=== PATIENT | male | born 1935 | race Caucasian/White ===

== ENCOUNTER 2019-12-03 12:14 | Emergency (ER) | payer MEDICARE, OTHER, SELFPAY ==
--- NOTE | ~2019-12-03 | XR_ITS ---
EXAMINATION: XR shoulder RT min 2V INDICATION: Pain after fall, initial encounter TECHNIQUE: Two views of the right shoulder are submitted. COMPARISON: None FINDINGS: There is an acute, traumatic, closed, comminuted fracture of the proximal humeral shaft. Al ignment at the glenohumeral and acromioclavicular joints appears normal. No additional acute osseous findings are evident. Soft tissue swelling surrounds the fracture. IMPRESSION: Comminuted shaft fracture of the proximal humerus. Reviewed, dictated and finalized at location A.
[2019-12-03 12:14] VITALS: BP 110/65; PULSE 64; RESP 18; TEMP 36.4; O2SAT 98
[2019-12-03] MEDS: SODIUM CHLORIDE 0.9% IV 1,000 ML 999 ML IV CONT (12:40)
[2019-12-03] MEDS: ONDANSETRON INJ 4 MG/2 ML VIAL IV PUSH (12:40)
[2019-12-03] MEDS: MORPHINE SULFATE 4 MG/ML INJ IV PUSH (12:40)
--- NOTE | 2019-12-03 12:50 | ED.GENADULT ---
HPI - General Adult General Chief complaint: Extremity Injury, Upper <Ezequiel Kearney PA-C - Last Filed: 12/03/19 14:35> Stated complaint: fall <PATI Fraire Last Filed: 12/03/19 14:35> Time Seen by Provider: 12/03/19 12:19 <PATI Fraire Last Filed: 12/03/19 14:35> Source: patient and EMS <PATI Fraire Last Filed: 12/03/19 14:35> Mode of arrival: ambulatory <PATI Fraire Last Filed: 12/03/19 14:35> Limitations: no limitations <PATI Fraire Last Filed: 12/03/19 14:35> History of Present Illness HPI narrative: Patient is an 84-year-old male who presents per EMS status post ground-level fall while working outside injuring the right shoulder notes moderate aching pain worse with activity and movement patient denies other injuries or complaints specifically no head injury syncope loss of consciousness. <PATI Fraire Last Filed: 12/03/19 14:35> Related Data Home medications: Home Medications Medication Instructions Recorded Confirmed acetaminophen-caffeine [Excedrin 1 tablet PO Q6H PRN 06/13/19 Tension Headache] ascorbic acid (vitamin C) mg PO 06/13/19 aspirin,buffd-calcium carb-mag 325 mg PO DAILY 06/13/19 calcium carbonate-vitamin D3 1 tablet PO BID 06/13/19 chlorhexidine gluconate 06/13/19 diclofenac sodium PO 06/13/19 ferrous sulfate 06/13/19 fexofenadine-pseudoephedrine 1 tablet PO QAM 06/13/19 finasteride mg 06/13/19 glucosamine-chondroitin 2 tablet PO TID 06/13/19 mag dqusz-D0-fabcibri rt xt tablet PO 06/13/19 metoprolol tartrate 25 mg PO DAILY 06/13/19 ohzuyxgq-gjg-ZA-lycopen-lutein 1 tablet PO DAILY 06/13/19 [Centrum Silver] niacin 500 mg PO BID 06/13/19 nitroglycerin 0.4 mg PRN 06/13/19 pantoprazole 40 mg PO DAILY 06/13/19 ranitidine HCl 150 mg PO BID 06/13/19 simvastatin mg 06/13/19 tamsulosin mg PO 06/13/19 <Ezequiel Kearney PA-C - Last Filed: 12/03/19 14:35> Allergies/adverse reactions: Allergies Allergy/AdvReac Type Severity Reaction Status Date / Time Milk Containing Products AdvReac Nausea Unverified 06/13/19 09:32 <Ezequiel Kearney PA-C - Last Filed: 12/03/19 14:35> [facility] Past Medical History Medical History: Medical History (Updated 12/03/19 @ 13:31 by Suzanne Medrano MD) Anemia Arthritis Back pain BPH (benign prostatic hyperplasia) Coronary artery disease Fall Glaucoma HTN (hypertension) Hypercholesterolemia Kidney stones Lactose intolerance Myocardial infarction x2 1996, 2000 Pancreatitis Seasonal allergies <PATI Fraire Last Filed: 12/03/19 14:35> Surgical History Surgical History: Surgical History (Updated 06/13/19 @ 10:45 by CARLO Long) H/O inguinal hernia repair H/O Spinal surgery H/O umbilical hernia repair Hx of cardiac cath x 2 1996, 2000 stent placement Hx of cholecystectomy Hx of tonsillectomy <Ezequiel Kearney PA-C - Last Filed: 12/03/19 14:35> Family History Family History: Family History (Updated 06/13/19 @ 10:46 by CARLO Long) Grandparent Cerebrovascular accident Sibling Heart disease Sibling Cancer <PATI Fraire Last Filed: 12/03/19 14:35> Social History Social History: Social History (Updated 06/13/19 @ 10:47 by CARLO Long) Smoking status: Former smoker Alcohol intake: never Substance use: never Gender identity (if verbalized by the patient): Male <PATI Fraire Last Filed: 12/03/19 14:35> Course Course Emergency Course: Patient in the room aware of discussion with orthopedic surgery agreeing to follow in clinic as instructed <Ezequiel Kearney PA-C - Last Filed: 12/03/19 14:35> [employer]/PA Physician Supervision Attestation for Ezequiel Kearney [id number]. We discussed the case and reviewed the x-ray of the right shoulder fracture. Dr. Phillips our orthopedic surgeon collections attorney so
[2019-12-03] MEDS: ONDANSETRON INJ 4 MG/2 ML VIAL (13:57)
[2019-12-03 13:58] VITALS: BP 108/53; PULSE 72; RESP 18; O2SAT 99
[2019-12-03 15:14] VITALS: BP 102/76; PULSE 72; RESP 18
== END 2019-12-03 15:19 | disposition home or self-care (01) ==
PROVIDERS: Emergency Provider Emergency Medicine; PCP Family Medicine
DX: S42.351A Displaced comminuted fracture of shaft of humerus, right arm, initial encounter for closed fracture (principal); D64.9 Anemia, unspecified; M19.90 Unspecified osteoarthritis, unspecified site; N40.0 Benign prostatic hyperplasia without lower urinary tract symptoms; I25.10 Atherosclerotic heart disease of native coronary artery without angina pectoris; H40.9 Unspecified glaucoma; I10 Essential (primary) hypertension; E78.00 Pure hypercholesterolemia, unspecified; Z87.442 Personal history of urinary calculi; I25.2 Old myocardial infarction; Z95.5 Presence of coronary angioplasty implant and graft
CPT/HCPCS: 73030; 96361; 96374; 96375; 96376; 99284; J2270; J2405; J7030

== ENCOUNTER 2020-01-19 03:43 | Day surgery (SDC) | payer MEDICARE, OTHER, SELFPAY ==
[2020-01-19] VITALS (16 sets, daily range): BP systolic 101–150; BP diastolic 56–97; PULSE 60–97; RESP 12–18; TEMP 36.4–36.7; O2SAT 93–100
--- NOTE | ~2020-01-19 | XR_ITS ---
EXAMINATION: XR fluoroscopy no charge DATE: 01/19/2020 10:17 INDICATION: Right ureteral stone extraction TECHNIQUE: 2 fluoroscopic spot images of the pelvis were obtained during procedure performed by Dr. Darinel deal. Radiologist was not present for the imaging or procedure. The amount of fluoroscopy time used during this procedure was 0.1 minutes. COMPARISON: CT dated 01/19/2020 FINDINGS: Initial utility tender carding radiograph demonstrates excreted contrast from prior contrast enhanced CT filling the b ladder and mildly dilated right ureter. The latter is likely related to previously noted pair of 4 mm obstructing stones at the distal right ureter which are obscured on the fluoroscopic images by the c ontrast in the bladder. No stones identified in the pelvis residual contrast in the right ureter or b ladder on the post extraction image. Incidentally noted is partially visualized internal fixation at the bilateral proximal femurs. IMPRESSION: 1. Fluoroscopy utilized during distal right ureteral stone extraction with no stones seen on the post procedure imaging. See procedure note for further detail. Reviewed, dictated and finalized at location A. IMPRESSION: 1. Fluoroscopy utilized during distal right ureteral stone extraction with no s tones seen on the post procedure imaging. See procedure note for further detail .
--- NOTE | ~2020-01-19 | CT_ITS ---
EXAMINATION: CT abdomen pelvis w con DATE: 01/19/2020 05:18 INDICATION: Right-sided abdominal and flank pain. Constipation, nausea and vomiting. TECHNIQUE: Computed tomography (CT) of the abdomen and pelvis was performed with 100 mL Omnipaque-350 intravenous contrast. Automated exposure control and iterative reconstruction technique were employe d. The dose-length product was 1187.16 mGy-cm. COMPARISON: 01/27/18 FINDINGS: Unchanged 6 mm left lower lobe nodule consistent with old granulomatous disease. Minimal bibasilar at electasis. Cardiomegaly. Small sliding-type hiatal hernia. Mild central intrahepatic biliary ductal d ilation which is within normal limits post cholecystectomy with surgical clips the gallbladder fossa. There are a pair of 4 mm obstructing renal stones in the distal right ureter within 1 cm of the uret erovesicular junction resulting in mild right hydronephrosis and minimally delayed right nephrogram. There are a few additional bilateral renal stones. Several fluid attenuation left renal cysts the lar gest measuring 6.3 cm. 1.5 cm intermediate attenuation exophytic lesion at the upper pole of the righ t kidney which appears unchanged in size and demonstrates similar attenuation as on the earlier nonco ntrast study from 2 years prior which would be consistent with a proteinaceous/hemorrhagic cyst. Ther e is mild colonic diverticulosis with a sigmoid predominance. There is no adjacent inflammatory jack ge to suggest diverticulitis. Small amount of fluid in the proximal colon and moderate amount of stoo l throughout the distal colon. The appendix is not visualized. No pericecal inflammatory change to pierce ggest acute appendicitis. Bladder is normal. Small fat-containing left inguinal hernia. No free intra peritoneal gas or fluid. No pathologically enlarged abdominal or pelvic lymphadenopathy. Old healed b ilateral proximal femoral fractures with internal fixation of bilateral intramedullary rods and inter locking dynamic femoral neck compression screw fixation. Mild to moderate thoracolumbar spondylosis w ith bridging osteophytes at multiple levels consistent with diffuse idiopathic skeletal hyperostosis (DISH). IMPRESSION: 1. Bilateral nephrolithiasis with a couple obstructing 4 mm distal right ureteral stones resulting in mild right hydroureteronephrosis. 2. Cardiomegaly. 3. Small sliding-type hiatal hernia. 4. Mild diverticulosis. Reviewed, dictated and finalized at location A. IMPRESSION: 1. Bilateral nephrolithiasis with a couple obstructing 4 mm distal right ureter al stones resulting in mild right hydroureteronephrosis. 2. Cardiomegaly. 3. Small sliding-type hiatal hernia. 4. Mild diverticulosis.
--- NOTE | 2020-01-19 04:00 | ED.ABDPAIN ---
HPI - Abdominal Pain General Chief Complaint: Abdominal Pain Stated Complaint: flank pain Time Seen by Provider: 01/19/20 03:49 Source: patient and EMS Mode of arrival: EMS Limitations: no limitations History of Present Illness HPI narrative: Patient is an 84-year-old male who presents for evaluation of abdominal pain and flank pain. Patient reportedly has a recent history of constipation, used a suppository tonight and was able to produce on home bowel movement. Since then, patient has had some associated flank pain as well as continued abdominal pain. Patient endorses some abdominal stenting. Pain is mostly on the right side of the abdomen, radiation into the right flank. No associated dysuria or hematuria. Patient has a history of abdominal hernia repair. He reports nausea and decreased oral intake over the past 24 hours. Patient denies fever or chills. Related Data Home Medications Medication Instructions Recorded Confirmed acetaminophen-caffeine [Excedrin 1 tablet PO Q6H PRN 06/13/19 Tension Headache] ascorbic acid (vitamin C) mg PO 06/13/19 aspirin,buffd-calcium carb-mag 325 mg PO DAILY 06/13/19 calcium carbonate-vitamin D3 1 tablet PO BID 06/13/19 chlorhexidine gluconate 06/13/19 diclofenac sodium PO 06/13/19 ferrous sulfate 06/13/19 fexofenadine-pseudoephedrine 1 tablet PO QAM 06/13/19 finasteride mg 06/13/19 glucosamine-chondroitin 2 tablet PO TID 06/13/19 mag igkhk-S0-agiiecaf rt xt tablet PO 06/13/19 metoprolol tartrate 25 mg PO DAILY 06/13/19 apenwmab-eok-DW-lycopen-lutein 1 tablet PO DAILY 06/13/19 [Centrum Silver] niacin 500 mg PO BID 06/13/19 nitroglycerin 0.4 mg PRN 06/13/19 pantoprazole 40 mg PO DAILY 06/13/19 ranitidine HCl 150 mg PO BID 06/13/19 simvastatin mg 06/13/19 tamsulosin mg PO 06/13/19 Allergies Allergy/AdvReac Type Severity Reaction Status Date / Time Milk Containing Products AdvReac Nausea Unverified 06/13/19 09:32 Review of Systems Review of Systems: Narrative: CONSTITUTIONAL: Denies fever, chills, or sweats. ENT: Denies rhinorrhea, congestion, sore throat, or otalgia. CARDIOVASCULAR: Denies chest pain, palpitations, or edema. RESPIRATORY: Denies cough or dyspnea. GASTROINTESTINAL: Reports abdominal pain and nausea, reports constipation GENITOURINARY: Denies dysuria or hematuria. SKIN: Denies rash or itching. MUSCULOSKELETAL: Reports right-sided back pain, denies myalgias NEUROLOGIC: Denies headache, numbness, or weakness. [facility] Past Medical History Medical History Anemia Arthritis Back pain BPH (benign prostatic hyperplasia) Coronary artery disease Fall Glaucoma HTN (hypertension) Hypercholesterolemia Kidney stones Lactose intolerance Myocardial infarction x2 1996, 2000 Pancreatitis Seasonal allergies Surgical History Surgical History H/O inguinal hernia repair H/O Spinal surgery H/O umbilical hernia repair Hx of cardiac cath x 2 1996, 2000 stent placement Hx of cholecystectomy Hx of tonsillectomy Family History Family History Grandparent Cerebrovascular accident Sibling Heart disease Sibling Cancer Social History Social History Smoking status: Former smoker Alcohol intake: never Substance use: never Gender identity (if verbalized by the patient): Male Exam Narrative: Exam Narrative: GENERAL: Awake, alert, conversant HEAD: Normocephalic, atraumatic. EYES: PERRLA and EOMI. ENT: Nares clear, no rhinorrhea or epistaxis. Mucous membranes moist. NECK: Supple. CHEST: No respiratory distress, breathing even and non labored HEART: Regular rate, sinus rhythm ABDOMEN: Distention, no rigidity, tender in the right lower quadrant, no guarding, no rebound EXTREMITIES: Normal range of motion. No edema.
[2020-01-19] MEDS: ONDANSETRON INJ 4 MG/2 ML VIAL IV PUSH (04:15)
[2020-01-19] MEDS: SODIUM CHLORIDE 0.9% IV 500 ML 999 ML IV CONT (04:17)
[2020-01-19] MEDS: MORPHINE SULFATE 4 MG/ML INJ 2 MG IV PUSH (04:18)
[2020-01-19 04:46] LABS: Basophils Absolute Auto 0.1 K/mm3 (0.0-0.1); Basophils Percent Auto 0.5 % (0.2-1.2); Eosinophils Percent Auto 0.1 % (0-4.4); Hematocrit 37.7 % (42.0-52.0); Hemoglobin 12.3 g/dL (14.0-18.0); Immature Granulocyte Absolute 0.03 K/mm3 (0.00-0.031); Immature Granulocyte Percent A 0.3 % (0-0.5); Lymphocytes Absolute Auto 1.27 K/mm3 (0.9-3.2); Lymphocytes Percent Auto 12.8 % (18.3-44.2); Mean Corpuscular HGB Conc 32.6 g/dl (32-36); Mean Corpuscular Hemoglobin 30.6 pg (26-34); Mean Corpuscular Volume 93.8 fl (80-100); Mean Platelet Volume 9.4 fl (7.4-10.4); Monocytes Absolute Auto 0.7 K/mm3 (0.1-0.6); Monocytes Percent Auto 7.2 % (2.6-8.5); Neutrophils Absolute Auto 7.9 K/mm3 (1.3-6.7); Neutrophils Percent Auto 79.1 % (45.5-73.1); Platelet Count Result 216 k/mm3 (150-375); Red Blood Count 4.02 M/mm3 (4.6-6.20); Red Cell Distribution Width 12.9 % (11.5-14.5); White Blood Count 9.9 K/mm3 (4.5-10.0)
[2020-01-19 05:00] LABS: Alanine Aminotransferase 14 U/L (4-50); Albumin Level 4.2 g/dL (3.5-5.1); Alkaline Phosphatase 103 U/L (38-126); Aspartate Amino Transferase 23 U/L (17-59); Bilirubin,Total 0.6 mg/dL (0.2-1.3); Blood Urea Nitrogen 37 mg/dL (9-20); Calcium 8.7 mg/dL (8.4-10.2); Carbon Dioxide 24 mmol/L (22-30); Chloride 105 mmol/L (98-107); Estimated CRCL calculation 46 ml/min; Estimated Glomerular Filt Rate > 60; Glucose 122 mg/dL (75-110); Lipase 45 U/L (23-300); Potassium 4.2 mmol/L (3.4-5.0); Sodium 138 mmol/L (137-145)
[2020-01-19 05:01] LABS: Lactic Acid Reflex 0.8 mmol/L (0.7-2.1)
[2020-01-19 06:37] LABS: Add Urine Microscopic? YES; Appearance Urine Clear (Clear); Bilirubin Urine Negative (Negative); Blood Urine Negative (Negative); Color Urine Yellow (Yellow); Glucose Urine UA Negative (Negative); Ketones Urine 1+ mg/dL (Negative); Leukocyte Esterase Ur Negative LEU/UL (Negative); Mucus Urine Rare /lpf; Nitrate Urine Negative (Negative); Protein Urine Negative (Negative); RBC Urine 0-2 /hpf (0-2); Squamous Epithelial Cell Urine Few /hpf (Few); Urobilinogen Urine Negative mg/dL (<2.0); WBC Urine 0-3 /hpf
[2020-01-19 06:39] LABS: Specific Grav Ur > 1.060 (1.001-1.035)
[2020-01-19] MEDS: SODIUM CHLORIDE 0.9% IV 1,000 ML 999 ML IV CONT (07:20)
[2020-01-19] MEDS: METOCLOPRAMIDE HCL INJ 10 MG/2 ML VIAL IV PUSH (07:20)
[2020-01-19] MEDS: MORPHINE SULFATE 4 MG/ML INJ IV PUSH (07:20)
--- NOTE | 2020-01-19 08:36 | PM.HPGS ---
History of Present Illness History of Present Illness Consent: Risks, benefits, and alternatives have been discussed and questions answered. Patient agrees to proceed with procedure. Chief complaint: flank pain Narrative: Christi Corona is a 84 year old male who is very well known to me with a long history of BPH and a remote history of urolithiasis. I saw him last week and he was doing well from a urological standpoint but now presents to the ER with acute right renal colic, nausea and vomiting. He denies fevers chills or gross hematuria. Imaging reveals a 7-8 mm obstructing right distal ureteral calculus. Review of Systems Cardiovascular: Cardiovascular: Denies chest pain, Denies lightheadedness, Denies palpitations and Denies dyspnea Respiratory: Respiratory: Denies dyspnea Gastrointestinal: Gastrointestinal: Reports as per HPI, Denies diarrhea, Reports nausea and Reports vomiting Genitourinary: Genitourinary: Denies hematuria and Denies dysuria Endocrine: Endocrine: Denies palpitations PMFSH Past Medical History Medical History Anemia Arthritis Back pain BPH (benign prostatic hyperplasia) Coronary artery disease Fall Glaucoma HTN (hypertension) Hypercholesterolemia Kidney stones Lactose intolerance Myocardial infarction x2 1996, 2000 Pancreatitis Seasonal allergies Surgical History Surgical History H/O inguinal hernia repair H/O Spinal surgery H/O umbilical hernia repair Hx of cardiac cath x 2 1996, 2000 stent placement Hx of cholecystectomy Hx of tonsillectomy Family History Family History Grandparent Cerebrovascular accident Sibling Heart disease Sibling Cancer Social History Social History Smoking status: Former smoker Alcohol intake: never Substance use: never Gender identity (if verbalized by the patient): Male Meds Home Medications and Allergies Home Medications Medication Instructions Recorded Confirmed Type acetaminophen-caffeine [Excedrin 1 tablet PO Q6H PRN 06/13/19 History Tension Headache] ascorbic acid (vitamin C) mg PO 06/13/19 History aspirin,buffd-calcium carb-mag 325 mg PO DAILY 06/13/19 History calcium carbonate-vitamin D3 1 tablet PO BID 06/13/19 History chlorhexidine gluconate 06/13/19 History diclofenac sodium PO 06/13/19 History fexofenadine-pseudoephedrine 1 tablet PO QAM 06/13/19 History finasteride mg 06/13/19 History mag dgqcf-P0-ehgwhbud rt xt tablet PO 06/13/19 History metoprolol tartrate 25 mg PO DAILY 06/13/19 History tilqpwlk-dus-DK-lycopen-lutein 1 tablet PO DAILY 06/13/19 History [Centrum Silver] niacin 500 mg PO BID 06/13/19 History nitroglycerin 0.4 mg PRN 06/13/19 History pantoprazole 40 mg PO DAILY 06/13/19 History simvastatin mg 06/13/19 History tamsulosin mg PO 06/13/19 History Adult Probiotic 01/19/20 History Allergies Allergy/AdvReac Type Severity Reaction Status Date / Time Milk Containing Products AdvReac Nausea Verified 01/19/20 08:18 Vital Signs Vital Signs - 24 hr 01/19/20 03:45 01/19/20 04:20 01/19/20 05:00 Temperature 98.1 F Pulse Rate 97 96 92 Respiratory Rate 16 18 18 Blood Pressure 108/61 101/62 101/62 Pulse Oximetry 97 95 96 01/19/20 05:30 01/19/20 06:15 Temperature Pulse Rate 88 92 Respiratory Rate 18 Blood Pressure 120/73 101/64 Pulse Oximetry 95 94 Exam Const: General: no acute distress Resp: Effort & Inspection: normal respiratory effort GI: Inspection: non-distended GI Palp: No abdominal tenderness and No Guarding due to palpation present (GI) Auscultation: normal bowel sounds Assessment and Plan Assessment and plan (1) Right ureteral stone: Code(s): N20.1 - Calculus of ureter Status: Acute Additional Plan
--- NOTE | 2020-01-19 08:47 | ECG_ITS ---
Measurements Intervals [place] Rate: 89 P: 20 CT: 245 QRS: -27 QRSD: 97 T: -21 QT: 361 QTc: 441 Interpretive Statements SINUS RHYTHM WITH FIRST DEGREE AV BLOCK VOLTAGE CRITERIA FOR LVH INFERIOR INFARCT, AGE INDETERMINATE BORDERLINE ST-T WAVE ABNORMALITY- ANTERIOR LEADS ABNORMAL ECG Electronically Signed On 01-19-2020 9:02:28 CDT by Renzo Albright D.O.
[2020-01-19] MEDS: LACTATED RINGERS 1,000 ML 30 ML IV CONT (08:50)
--- NOTE | 2020-01-19 09:47 | WPDANESEPPF ---
Anes - Initial Pre Proc Eval Procedure: Operation Date: 01/19/20 13:30 Proposed Procedures p CYSTOSCOPY,RIGHT URETEROSCOPY,RIGHT RETROGRADE PYELOGRAM,RIGHT STONE EXTRACTION,POSSIBLE HOLMIUM LASER,POSSIBLE STENT PLACEMENT. - Gt Nascimento MD Date/Time: 01/19/20 09:47 Surgeon: Gt Nascimento MD Pre Op Diagnosis: flank pain Patient Data Age: 84 Gender: M Height: 5 ft 11 in Weight: 88.3 kg Last Vital Signs Temp 98.1 F 01/19/20 03:45 Pulse 82 01/19/20 08:15 Resp 18 01/19/20 06:15 BP 129/56 L 01/19/20 08:01 Pulse Ox 97 01/19/20 08:15 Allergies Allergy/AdvReac Type Severity Reaction Status Date / Time Milk Containing Products AdvReac Nausea Verified 01/19/20 09:35 Home Medications Medication Instructions Recorded Confirmed Type acetaminophen-caffeine [Excedrin 1 tablet PO Q6H PRN 06/13/19 History Tension Headache] ascorbic acid (vitamin C) mg PO 06/13/19 History aspirin,buffd-calcium carb-mag 325 mg PO DAILY 06/13/19 History calcium carbonate-vitamin D3 1 tablet PO BID 06/13/19 History chlorhexidine gluconate 06/13/19 History diclofenac sodium PO 06/13/19 History fexofenadine-pseudoephedrine 1 tablet PO QAM 06/13/19 History finasteride mg 06/13/19 History mag rkgjq-X6-vzlsshgy rt xt tablet PO 06/13/19 History metoprolol tartrate 25 mg PO DAILY 06/13/19 History pagxormz-cio-DH-lycopen-lutein 1 tablet PO DAILY 06/13/19 History [Centrum Silver] niacin 500 mg PO BID 06/13/19 History nitroglycerin 0.4 mg PRN 06/13/19 History pantoprazole 40 mg PO DAILY 06/13/19 History simvastatin mg 06/13/19 History tamsulosin mg PO 06/13/19 History Adult Probiotic 01/19/20 History Laboratory Tests 01/19/20 01/19/20 01/19/20 04:40 04:40 04:40 WBC 9.9 K/mm3 K/mm3 (4.5-10.0) RBC 4.02 M/mm3 L M/mm3 (4.6-6.20) Hgb 12.3 g/dL L g/dL (14.0-18.0) Hct 37.7 % L % (42.0-52.0) MCV 93.8 fl fl (80-100) MCH 30.6 pg pg (26-34) MCHC 32.6 g/dl g/dl (32-36) RDW 12.9 % % (11.5-14.5) Plt Count 216 k/mm3 k/mm3 (150-375) MPV 9.4 fl fl (7.4-10.4) Immature Gran % (Auto) 0.3 % % (0-0.5) Neut % (Auto) 79.1 % H % (45.5-73.1) Lymph % (Auto) 12.8 % L % (18.3-44.2) Izard % (Auto) 7.2 % % (2.6-8.5) Eos % (Auto) 0.1 % % (0-4.4) Baso % (Auto) 0.5 % % (0.2-1.2) Lymph # (Auto) 1.27 K/mm3 K/mm3 (0.9-3.2) Izard # (Auto) 0.7 K/mm3 H K/mm3 (0.1-0.6) Eos # (Auto) 0.0 K/mm3 K/mm3 (0-0.3) Baso # (Auto) 0.1 K/mm3 K/mm3 (0.0-0.1) Abs Immat Gran (auto) 0.03 K/mm3 K/mm3 (0.00-0.031) Absolute Neuts (auto) 7.9 K/mm3 H K/mm3 (1.3-6.7) Absolute Nucleated RBC 0.0 K/mm3 K/mm3 (0.0-0.012) Nucleated RBC % 0.0 % % (0.0-0.2) Sodium 138 mmol/L mmol/L (137-145) Potassium 4.2 mmol/L mmol/L (3.4-5.0) Chloride 105 mmol/L mmol/L (98-107) Carbon Dioxide 24 mmol/L mmol/L (22-30) BUN 37 mg/dL H mg/dL (9-20) Creatinine 1.10 mg/dL mg/dL (0.7-1.3) Estim Creat Clear Calc 46 ml/min ml/min Estimated GFR > 60 (59 - ) Glucose 122 mg/dL H mg/dL (75-110) Lactic Acid 0.8 mmol/L mmol/L (0.7-2.1) Calcium 8.7 mg/dL mg/dL (8.4-10.2) Total Bilirubin 0.6 mg/dL mg/dL (0.2-1.3) AST 23 U/L U/L (17-59) ALT 14 U/L U/L (4-50) Alkaline Phosphatase 103 U/L U/L (38-126) Total Protein 7.0 g/dL g/dL (6.3-8.2) Albumin 4.2 g/dL g/dL (3.5-5.1) Lipase 45 U/L U/L (23-300) Urine Color Urine Appearance Urine pH Ur Specific [place] Urine Protein Urine Glucose (UA) Urine Ketones Ur Blood (Man)
[2020-01-19] MEDS: ceFAZolin 2 GM/D5W 50 ML 2 GM/50 ML BAG IVPB (09:51)
[2020-01-19] MEDS: LIDOCAINE HCL 2% GEL UROJET 10 ML PKG MUCOUS MEM (10:00)
[2020-01-19] MEDS: KETOROLAC 30 MG/ML VIAL (*BKC) 15 MG IV PUSH (10:14)
--- NOTE | 2020-01-19 10:14 | PM.PROC ---
Procedure Note - Detailed Date of procedure: 01/19/20 Pre-op diagnosis: flank pain Post-op diagnosis: other (Right ureteral stones (two)) Procedure performed: Cystoscopy with right ureteroscopy and stone extraction Description of procedure: The patient was brought to the operative suite where he is prepped and draped in a routine sterile fashion while in the dorsal lithotomy position after the uneventful induction of a general LMA anesthetic. A 19F rigid cystoscope was placed in the bladder. There are no urethral strictures. His prostatic urethra measures, approximately, 2.0cm with small median lobe enlargement. The bladder mucosa was endoscopically normal without hyperemia or neoplasm. There was a single, orthotopic ureteral orifice bilaterally. A 0.035 glidewire was advanced into the right renal pelvis under fluoroscopy. The distal ureter was dilated with an 8F/10F ureteral dilator. Ureteroscopy was undertaken with a short, tapered, semi-rigid ureteroscope and two 4mm stones was extracted with ease (2 passes with the ureteroscope) using a 1.9F Escape disposable stone basket. Due to the ease of this manipulation I opted not to place a ureteral stent. The patient's bladder was emptied and was taken to the recovery room having tolerated this procedure well. Anesthesia: GLMA Surgeon: Gt Nascimento MD Estimated blood loss (mL): 0 Drains: No Packing: No Pathology: yes (Right ureteral stones) Complications: No immediate complications Condition: stable Disposition: PACU
== END 2020-01-19 12:30 | disposition home or self-care (01) ==
LOC: ANHED 07:36 → ANHSURGERY 08:13
PROVIDERS: Emergency Provider Emergency Medicine; PCP Family Medicine; Visit Provider Urology
PROC: (CPT 52352; principal; 2020-01-19 13:30)
DX: N20.1 Calculus of ureter (principal); I10 Essential (primary) hypertension; E78.00 Pure hypercholesterolemia, unspecified; N40.0 Benign prostatic hyperplasia without lower urinary tract symptoms; I25.10 Atherosclerotic heart disease of native coronary artery without angina pectoris; D64.9 Anemia, unspecified; M19.90 Unspecified osteoarthritis, unspecified site; I25.2 Old myocardial infarction; Z79.82 Long term (current) use of aspirin; H40.9 Unspecified glaucoma; Z95.5 Presence of coronary angioplasty implant and graft; Z87.891 Personal history of nicotine dependence
CPT/HCPCS: 52352; 36415; 74177; 80053; 81001; 82365; 83605; 83690; 85025; 88300; 93005; 96365; 96375; 96376; 99285; A9270; C1769; J0131; J0690; J1100; J1885; J2270; J2405; J2704; J2765; J3010; J7030; J7040; J7120; Q9966; Q9967

== ENCOUNTER 2020-07-03 09:21 | Outpatient (CLI) | payer MEDICARE, OTHER, SELFPAY ==
--- NOTE | ~2020-07-03 | XR_ITS ---
XR abdomen/kub 1V 07/03/2020 09:49 Indication: Right kidney stones. Six-month follow-up. Procedure: KUB Comparison: Comparison to multiple prior studies sequentially, with oldest reviewed study dated 08/2011. Findings: There are bilateral renal stones, largest in the lower pole of the right kidney measuring a pproximately 6 mm maximum dimension. There are cholecystectomy clips. There are surgical changes in b oth hips. There are cholecystectomy clips. Advanced lumbar spondylosis. Bowel pattern is nonobstructi ve with moderate colonic fecal loading. There are possible old healed pubic rami fractures. Impression: 1: Bilateral nephrolithiasis. Reviewed, dictated and finalized at location A. ITY ASSURANCE CLERK Impression: 1: Bilateral nephrolithiasis.
== END 2020-07-03 09:22 | disposition home or self-care (01) ==
LOC: ANHIMG 09:25
PROVIDERS: PCP Family Medicine; Visit Provider Urology
DX: N20.0 Calculus of kidney (principal)
CPT/HCPCS: 74018

== ENCOUNTER 2020-07-31 06:51 | Outpatient (NON) | payer MEDICARE, OTHER, SELFPAY ==
[2020-08-01 00:15] LABS: SARS-CoV-2 RNA PCR Positive
== END 2020-07-31 06:52 ==
LOC: ANHCOVIDDT 06:58
PROVIDERS: PCP Family Medicine; Visit Provider Physician Assistant
DX: U07.1 COVID-19 (principal)
CPT/HCPCS: C9803; U0003; U0005

== ENCOUNTER 2020-08-02 08:00 | Outpatient (RCR) | payer MEDICARE, OTHER, SELFPAY ==
--- NOTE | 2020-08-01 15:46 | PC.NURSE ---
Patient instructed on Bamlanivimab treatment tomorrow with understanding stated to instruction.
[2020-08-02] MEDS: diphenhydrAMINE HCl CAP 25 MG CAPSULE PO (08:08)
[2020-08-02] MEDS: ACETAMINOPHEN 325 MG TABLET 650 MG PO (08:08)
[2020-08-02] MEDS: FAMOTIDINE 20 MG TABLET PO (08:08)
[2020-08-02 08:19] VITALS: BP 110/42; PULSE 56; RESP 16; TEMP 36.3; O2SAT 98
--- NOTE | 2020-08-02 08:53 | PC.NURSE ---
Patient given written instruction on Bamlanivimab discharge instruction sheet and Bamlanivimab facts sheet with understanding stated.
[2020-08-02 09:45] VITALS: BP 115/57; PULSE 50; RESP 14; O2SAT 95
--- NOTE | 2020-08-03 11:57 | PC.NURSE ---
Patient states that he feels back to his normal functioning state before covid.
== END 2020-08-13 11:21 ==
LOC: AMCINF 08:00
PROVIDERS: PCP Family Medicine; Visit Provider Family Medicine
DX: Z23 Encounter for immunization (principal); U07.1 COVID-19; J12.82 Pneumonia due to coronavirus disease 2019; I10 Essential (primary) hypertension; E11.9 Type 2 diabetes mellitus without complications; Z87.891 Personal history of nicotine dependence
CPT/HCPCS: A9270; J7050; M0239; Q0239

== ENCOUNTER 2020-08-13 12:12 | Inpatient (IN) | payer MEDICARE, OTHER, SELFPAY ==
[2020-08-13] VITALS (17 sets, daily range): BP systolic 113–140; BP diastolic 40–78; PULSE 77–119; RESP 17–82; TEMP 36.4–37.3; O2SAT 85–100
--- NOTE | ~2020-08-13 | XR_ITS ---
EXAMINATION: XR chest 1V portable DATE: 08/27/2020 05:58 INDICATION: COVID-19 pneumonia. TECHNIQUE: A single frontal view of the chest was obtained. COMPARISON: Chest single view 08/21/2020, chest CT 08/13/2020 FINDINGS: The patient is rotated to his right. There are patchy airspace opacities in all lung zones bilaterally. No pleural effusion or pneumothorax. Cardiomegaly is noted. Surgical clips in the right upper quadrant are likely from cholecystectomy. IMPRESSION: 1. Worsened diffuse lung disease, consistent with pneumonia. 2. Cardiomegaly. Reviewed, dictated and finalized at location A. RATURE PROFESSOR
--- NOTE | ~2020-08-13 | XR_ITS ---
EXAMINATION: XR chest 1V portable EXAM DATE: 08/13/2020 12:45 INDICATION: Cough and shortness of breath. TECHNIQUE: Portable AP frontal chest x-ray was obtained. Comparison is made to prior examination from 07/18/2016. FINDINGS: There is rather extensive left-sided, moderate right-sided airspace disease new compared to previous examination, could be infection or edema. COVID pneumonia should be considered. No pneumoth orax or pleural effusion. Cardiomegaly unchanged. There are bony degenerative changes. No clips IMPRESSION: Extensive left, moderate right-sided infection and/or edema. Consider COVID pneumonia. Reviewed, dictated and finalized at location A. R SUPERVISOR IMPRESSION: Extensive left, moderate right-sided infection and/or edema. Consid er COVID pneumonia.
--- NOTE | ~2020-08-13 | CT_ITS ---
EXAMINATION: CTA chest PE protocol DATE: 08/13/2020 13:55 INDICATION: Dyspnea. COVID-19 pneumonia. TECHNIQUE: Computed tomography angiography (CTA) of the chest was performed with 100 mL Omnipaque-350 intravenous contrast timed to evaluate the pulmonary arteries. Coronal maximum intensity projection 3D-reconstructions were created by the technologist. Automated exposure control and iterative reconst ruction technique were employed. The dose-length product was 740.10 mGy-cm. COMPARISON: CT abdomen and pelvis 01/19/2020 FINDINGS: There are patchy airspace and groundglass opacities associated with septal thickening invol ving all lobes. There are trace pleural effusions. Cardiomegaly is noted. There are pulmonary emboli in right middle lobe and right lower lobe. Sensitivity is mildly decreased by motion artifact. There is mild mediastinal and bilateral hilar lymphadenopathy. There is a 16 mm hemorrhagic cyst in right k idney. There is bilateral gynecomastia. 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 There is kyphosis of thoracic spine. There are bridging endplate osteophytes at mu ltiple levels in the spine, consistent with diffuse idiopathic skeletal hyperostosis (DISH). There is a hemangioma in T7 vertebral body. IMPRESSION: 1. Acute pulmonary emboli in right middle lobe and right lower lobe. I called this result to Dr. Tim salmeron. 2. Diffuse lung disease, consistent with COVID-19 pneumonia. 3. Cardiomegaly. 4. Mild mediastinal and bilateral hilar lymphadenopathy, likely reactive. Reviewed, dictated and finalized at location A. S PROMOTION REPRESENTATIVE IMPRESSION: 1. Acute pulmonary emboli in right middle lobe and right lower lobe. I called t his result to Dr. Cruz. 2. Diffuse lung disease, consistent with COVID-19 pneumonia. 3. Cardiomegaly. 4. Mild mediastinal and bilateral hilar lymphadenopathy, likely reactive.
--- NOTE | ~2020-08-13 | XR_ITS ---
EXAMINATION: XR chest 1V portable EXAM DATE: 08/17/2020 06:27 INDICATION: Follow-up infiltrates. COVID pneumonia. Pulmonary emboli. TECHNIQUE: Portable AP frontal chest x-ray was obtained. Comparison is made to prior examination from 08/13/2020. FINDINGS: Moderate to large amount of bilateral ill-defined acute airspace disease, with mild interva l progression compared to prior study. No pneumothorax or sizable pleural effusion. Cardiac silhouett e is enlarged but stable in size compared to prior exam. There are bony degenerative changes. The bon es are osteopenic. There are bony degenerative changes. IMPRESSION: 1. Moderate to large amount of bilateral pneumonia and/or edema. Reviewed, dictated and finalized at location A. T RELATION OFFICER
--- NOTE | ~2020-08-13 | XR_ITS ---
EXAMINATION: XR chest 1V portable DATE: 08/21/2020 11:59 INDICATION: COVID-19 pneumonia. TECHNIQUE: A single frontal view of the chest was obtained. COMPARISON: Chest single view 08/17/2020, chest CT 08/13/2020 FINDINGS: There are airspace opacities in a heterogeneous distribution throughout the lungs bilateral ly. No pleural effusion or pneumothorax. Cardiomegaly is noted. Surgical clips in the right upper izaiah drant are likely from cholecystectomy. IMPRESSION: 1. Stable diffuse lung disease, consistent with pneumonia. 2. Cardiomegaly. Reviewed, dictated and finalized at location A. RNAL RELATIONS MANAGER
--- NOTE | 2020-08-13 12:16 | ECG_ITS ---
Measurements Intervals [place] Rate: 108 P: 4 MI: 201 QRS: -29 QRSD: 105 T: -14 QT: 332 QTc: 446 Interpretive Statements SINUS TACHYCARDIA VOLTAGE CRITERIA FOR LVH INFERIOR INFARCT, AGE INDETERMINATE BORDERLINE T WAVE ABNORMALITY- ANTERIOR LEADS BASELINE ARTIFACT- II, III, AVF, V1, V4-V6 ABNORMAL ECG Electronically Signed On 08-13-2020 12:55:11 SURVEYOR CHAIN HELPER by Renzo Albright D.O.
--- NOTE | 2020-08-13 12:18 | ED.GENADULT ---
HPI - General Adult General Chief complaint: Shortness of Breath/Dyspnea Stated complaint: SOB Time Seen by Provider: 08/13/20 12:15 Source: RN notes reviewed History of Present Illness HPI narrative: Patient presents emergency department from home via EMS for shortness of breath. Patient states he had been having progressive shortness of breath for the past 3 days EMS was called and found to have the patient with pulse ox in the 60s on room air. Patient tested positive for Covid on July 31, 2020 he was given Decadron by EMS and placed on nonrebreather with oxygen saturations in the upper 80s and placed on BiPAP upon arrival to the ER. Patient denies any fevers or chills chest pain or any other symptom Related Data Home Medications Medication Instructions Recorded Confirmed Centrum Silver 1 tablet PO DAILY 06/13/19 08/02/20 Excedrin Tension Headache 1 tablet PO Q6H PRN 06/13/19 08/02/20 ascorbic acid (vitamin C) 500 mg PO DAILY 06/13/19 08/02/20 aspirin,buffd-calcium carb-mag 325 mg PO DAILY 06/13/19 08/02/20 calcium carbonate-vitamin D3 1 tablet PO BID 06/13/19 08/02/20 chlorhexidine gluconate 0.12 ml PO DAILY 06/13/19 08/02/20 diclofenac sodium 75 mg PO DAILY 06/13/19 08/02/20 fexofenadine-pseudoephedrine 1 tablet PO QAM 06/13/19 08/02/20 finasteride 5 mg DAILY 06/13/19 08/02/20 mag [id number] rt xt 1 tablet PO DAILY 06/13/19 08/02/20 metoprolol tartrate 25 mg PO DAILY 06/13/19 08/02/20 niacin 500 mg PO BID 06/13/19 08/02/20 nitroglycerin 0.4 mg SUBLINGUAL PRN PRN 06/13/19 08/02/20 pantoprazole 40 mg PO DAILY 06/13/19 08/02/20 simvastatin 20 mg PO DAILY 06/13/19 08/02/20 tamsulosin 0.4 mg PO DAILY 06/13/19 08/02/20 Allergies Allergy/AdvReac Type Severity Reaction Status Date / Time Milk Containing Products AdvReac Nausea Verified 01/25/21 12:14 Review of Systems Review of Systems: Narrative: Gen.: Denies fevers or chills ENT: Denies congestion Respiratory: See HPI CV: Denies chest pain or palpitations GI: Denies abdominal pain nausea, emesis or diarrhea Musculoskeletal: Denies back pain or muscle pain Neuro: Denies numbness, tingling, weakness or focal weakness Skin: Denies rash Except as documented, all other systems reviewed and negative [facility] Past Medical History Medical History Anemia Arthritis Back pain BPH (benign prostatic hyperplasia) Coronary artery disease [place] Glaucoma HTN (hypertension) Hypercholesterolemia Kidney stones Lactose intolerance Mastoid abscess Myocardial infarction x2 1996, 2000 Pancreatitis Seasonal allergies Surgical History Surgical History H/O inguinal hernia repair H/O Spinal surgery H/O umbilical hernia repair Hx of cardiac cath x 2 1996, 2000 stent placement Hx of cholecystectomy Hx of tonsillectomy Family History Family History Grandparent Cerebrovascular accident Sibling Heart disease Sibling Cancer Social History Social History Smoking packs per day: 1 Smoking cigarettes per day: 20.0 Years smoked: 25 Smoking pack-years: 25.00 Smoking status: Former smoker Tobacco type: cigarettes Alcohol intake: never Substance use: never Gender identity (if verbalized by the patient): Male Spiritual care concerns: No Exam Narrative: Exam Narrative: APPEARANCE: Mild respiratory distress sitting upright in bed HEENT: Normocephalic, atraumatic OMM RESPIRATORY: Moderate respiratory distress coarse breath sounds with bilateral lung anand, no wheezing CARDIOVASCULAR: Regular rate and rhythm without murmurs rubs or gallops. ABDOMINAL: Soft, nontender, nondistended, no rebound or guarding MUSCULOSKELETAl: Moves all extremities. No clubbing, cyanosis or edema. Bilateral calves soft and nontender NEURO: Awake and alert.
[2020-08-13 12:25] LABS: Alveolar/Arterial O2 Gradient 580.5 mmHg; Carboxyhemoglobin 0.2 % THb (0-2.0); Fractional Inspired Oxygen 100 %; HCO3 ABG 21.4 mEq/l (22.0-26.0); Methemoglobin ABG 0.1 %THb (0-1.5); Oxygen Content ABG 16.5 %vol (16.0-22.0); Oxygen Saturation ABG 97.8 % (95.0-100.0); Oxyhemoglobin 96.9 % THb (90.0-100.0); PCO2 ABG 32.5 mmHg (35.0-45.0); Reduced Hemoglobin 2.8 %THb (0-5.0); pH ABG 7.437 (7.350-7.450)
[2020-08-13 12:26] LABS: Device NON-INVASIVE VENT; Modified Allen's Test Pass; Non-Invasive Expiratory Pressure 6 CMH2O; Non-Invasive Inspiratory Pressure 12 CMH2O; Non-Invasive Vent Rate 14 /MIN; Site Drawn RIGHT RADIAL
[2020-08-13 12:48] LABS: Basophils Percent Auto 0.1 % (0.2-1.2); Eosinophils Absolute Auto 0.1 K/mm3 (0-0.3); Eosinophils Percent Auto 0.4 % (0-4.4); Hematocrit 36.7 % (42.0-52.0); Immature Granulocyte Percent A 0.7 % (0-0.5); Lymphocytes Absolute Auto 1.04 K/mm3 (0.9-3.2); Lymphocytes Percent Auto 7.3 % (18.3-44.2); Mean Corpuscular HGB Conc 32.7 g/dl (32-36); Mean Corpuscular Hemoglobin 29.4 pg (26-34); Mean Platelet Volume 9.7 fl (7.4-10.4); Monocytes Absolute Auto 0.5 K/mm3 (0.1-0.6); Monocytes Percent Auto 3.7 % (2.6-8.5); Neutrophils Absolute Auto 12.5 K/mm3 (1.3-6.7); Neutrophils Percent Auto 87.8 % (45.5-73.1); Platelet Count Result 330 k/mm3 (150-375); Red Blood Count 4.08 M/mm3 (4.6-6.20); Red Cell Distribution Width 14.9 % (11.5-14.5); White Blood Count 14.2 K/mm3 (4.5-10.0)
[2020-08-13 12:58] LABS: INR 1.3; Prothrombin Time 16.4 Seconds (11.1-14.7)
[2020-08-13 12:59] LABS: Partial Thromboplastin Time 40.1 SECONDS (22.3-36.8)
[2020-08-13 13:01] LABS: Anion Gap 9 mmol/L (8-16); Blood Urea Nitrogen 37 mg/dL (9-20); Calcium 8.6 mg/dL (8.4-10.2); Carbon Dioxide 28 mmol/L (22-30); Chloride 106 mmol/L (98-107); Estimated CRCL calculation 37 ml/min; Estimated Glomerular Filt Rate 52; Glucose 125 mg/dL (75-110); Lactic Acid Reflex 3.5 mmol/L (0.7-2.1); Potassium 3.9 mmol/L (3.4-5.0); Sodium 143 mmol/L (137-145)
[2020-08-13 13:14] LABS: NT Pro B Type Natriuretic Pept 2000 PG/ML (5-100); Troponin I 0.216 ng/mL (0.000-0.034)
[2020-08-13] MEDS: ENOXAPARIN 100 MG/ML SYRINGE 85 MG SUB-Q ×2 (14:20→23:08)
[2020-08-13 15:46] LABS: Reflex Lactic Acid Yes or No Add Lactic
--- NOTE | 2020-08-13 16:21 | PC.NURSE ---
saturation noted to 85% on bipap call placed to resp provider aware
[2020-08-13 16:41] LABS: Lactic Acid 0.9 mmol/L (0.7-2.1)
[2020-08-13 17:04] LABS: Troponin I 0.326 ng/mL (0.000-0.034)
[2020-08-13 20:26] LABS: Troponin I 0.269 ng/mL (0.000-0.034)
--- NOTE | 2020-08-13 22:53 | PM.IMHP ---
H&P: HPI History of Present Illness Date/Time: 08/13/20 22:53 Chief Complaint: Difficulty breathing Narrative: Christi Corona is a 84 year old male with a past medical history of coronary artery disease, hypertension, BPH and COVID-19 diagnosis 07/31/2020 who presented to the ER via EMS due to shortness of breath. The patient had progressive shortness of breath for the last 3 days. The patient had been ill with COVID symptoms since July 25 with weight loss, fatigue, congestion, cough and weakness and tested positive for COVID on July 31. The patient received Bamlanivimab on August 02. He reports that after he received the Bamlanivimab his symptoms began to improve until on the when his went in the hospital. The day after his is admit the hospital he came progressively more fatigued and short of breath. Approximately 3 days ago he called EMS due to his symptoms in the told him that if he went to the ER at that time that he would just be discharged back home. He therefore waited until the morning of the when he called EMS again they arrived on the scene to find the patient was satting 60% on room air. The patient was given Decadron in the field and was placed on a non-rebreather with improvement in his oxygen saturations up to 80%. He was placed on BiPAP in ER with normalization of his oxygen saturations. He was then weaned to 15 L high-flow when he arrived to the IMU. In the ER the patient has CTA performed which demonstratedLower lobe pulmonary embolism, diffuse lung disease consistent with COVID-19 pneumonia and cardiomegaly. He has had a chest x-ray which demonstrated extensive left and moderate right-sided infection and or edema consistent with COVID pneumonia. Patient had not had a chest x-ray prior to his ER visit. Patient also had elevated troponin and was given a dose of therapeutic Lovenox. The patient denies having any chest pain. He was having dyspnea on exertion but then his shortness of breath became so severe that he was unable to do anything for himself. He denies any lower extremity swelling or pain. He denies any pleuritic chest pain. The patient reports that he has been afebrile today. Just prior to EMS arrival patient actually measured a temperature of 95.7? orally. EMS had reported that the patient had a low-grade temperature in route to the hospital. His temperature on arrival to the ER was 99.2. Review of Systems Review of Systems: Narrative: 12 systems were reviewed with pertinent positives and negatives per HPI. Except as documented in the HPI, all other systems were reviewed and are negative. [facility] Past Medical History Medical History (Updated 08/14/20 @ 06:43 by Malena Rubi DO) Anemia Iron deficiency anemia Arthritis Back pain BPH (benign prostatic hyperplasia) Dr. Nascimento Coronary artery disease DC in 1996 and in [address] 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 Followed at [facility] Pancreatitis Seasonal allergies Surgical History Surgical History (Updated 08/13/20 @ 23:29 by Malena Rubi DO) H/O inguinal hernia repair 1986 H/O Spinal surgery Lumbar diskectomy 1986 H/O umbilical hernia repair History of arthroscopy of left knee History of bilateral cataract extraction History of mastoidectomy As a child due to mastoiditis History of repair of left rotator cuff 1998 Hx of cardiac cath x 2 1996, 2000 stent placement Hx of cholecystectomy Hx of tonsillectomy Status post open reduction with internal fixation of fracture 2009 Family History Family History (Updated 08/13/20 @ 23:14 by Malena Rubi DO) Sibling Lung cancer Heart disease Sibling Dementia Sibling Cerebrovascular accident Mother Bladder cancer Father Heart d
[2020-08-14] VITALS (18 sets, daily range): BP systolic 111–127; BP diastolic 50–77; PULSE 51–112; RESP 20–40; TEMP 36.4–36.8; O2SAT 92–100; BMI 27.1
--- NOTE | 2020-08-14 | ECHO_ITS ---
Patient Info Name: Christi Corona Age: 84 years : 1935 Gender: Male Ht: 69 in Wt: 184 lbs BSA: 2.03 m2 HR: 70 bpm BP: 127 / 77 mmHg Technical Quality: Good Exam Date: 08/14/2020 9:17 AM Exam Location: [facility] Patient Status: Inpatient Admit Date: 08/13/2020 Staff Ordering Physician: Malena Rubi DO Certified Energy Manager: Robert Camp RDCS, RT Attending Provider: Eboni Yeh MD Referring Physician: Elicia SCHULTZ; Exam Type: CA echo doppler color flow Study Info Indications I26.99 - Other pulmonary embolism without acute cor pulmonale Complete two-dimensional, color flow and Doppler transthoracic echocardiogram is performed. Summary 1. Complete two-dimensional, color flow and Doppler transthoracic echocardiogram is performed. 2. Suboptimal image quality. Normal LV size, moderate severe LVH; normal LV systolic function, ejection fraction 60-65%; grade 1 diastolic dysfunction. Normal mitral valve structure, no significant MR. Aortic valve not visualized, no hemodynamically significant stenosis by Doppler. Mild TR, mild pulmonary hypertension, RVSP 41 mmHg. Left Ventricle Left ventricular chamber dimension is normal. Left ventricular systolic function is normal, estimated at 60-65%. There is severely increased left ventricular wall thickness. The left ventricular diastolic function is grade I diastolic dysfunction. Right Ventricle Right ventricular chamber dimension is normal. Right ventricular systolic function is normal. Left Atria Left atrial chamber dimension is normal. Aortic Valve The aortic valve is not well visualized. There is no aortic valve stenosis. Pulmonic Valve The pulmonic valve is normal. Mitral Valve The mitral valve has normal leaflets. Tricuspid Valve The tricuspid valve leaflets are not well visualized. There is mild tricuspid valve regurgitation. Mild pulmonary hypertension, estimated pulmonary arterial systolic pressure is 41 mmHg. Pericardium/Pleural The pericardium appears normal. Aorta The aortic root size at the sinus of Valsalva is mildly dilated. Left Ventricular Outflow Tract Name Value Normal LVOT 2D LVOT Diameter 2.1 cm LVOT Doppler LVOT Peak Gradient 5 mmHg LVOT Mean Gradient 2 mmHg LVOT VTI 22 cm LVOT VTI/AV VTI Ratio 0.7 LVOT Stroke Volume 77 ml LVOT CO 5.9 l/min LVOT CI 2.9 l/min/m2 Pulmonic Valve Name Value Normal RVOT Doppler RVOT Peak Gradient 2 mmHg RVOT Mean Gradient 1 mmHg Mitral Valve Name Value Normal ------
[2020-08-14] MEDS: SIMVASTATIN 20 MG TABLET PO ×2 (00:11→20:40)
[2020-08-14 05:38] LABS: Basophils Percent Auto 0.1 % (0.2-1.2); Hematocrit 31.7 % (42.0-52.0); Hemoglobin 10.1 g/dL (14.0-18.0); Immature Granulocyte Absolute 0.09 K/mm3 (0.00-0.031); Immature Granulocyte Percent A 0.9 % (0-0.5); Lymphocytes Absolute Auto 0.88 K/mm3 (0.9-3.2); Lymphocytes Percent Auto 8.5 % (18.3-44.2); Mean Corpuscular HGB Conc 31.9 g/dl (32-36); Mean Corpuscular Volume 91.1 fl (80-100); Mean Platelet Volume 9.7 fl (7.4-10.4); Monocytes Absolute Auto 0.2 K/mm3 (0.1-0.6); Monocytes Percent Auto 2.3 % (2.6-8.5); Neutrophils Absolute Auto 9.1 K/mm3 (1.3-6.7); Neutrophils Percent Auto 88.2 % (45.5-73.1); Platelet Count Result 283 k/mm3 (150-375); Red Blood Count 3.48 M/mm3 (4.6-6.20); Red Cell Distribution Width 14.9 % (11.5-14.5); White Blood Count 10.4 K/mm3 (4.5-10.0)
[2020-08-14 05:52] LABS: Alanine Aminotransferase 44 U/L (4-50); Alkaline Phosphatase 106 U/L (38-126); Anion Gap 7 mmol/L (8-16); Aspartate Amino Transferase 48 U/L (17-59); Bilirubin,Total 0.6 mg/dL (0.2-1.3); Blood Urea Nitrogen 35 mg/dL (9-20); Calcium 8.1 mg/dL (8.4-10.2); Carbon Dioxide 30 mmol/L (22-30); Chloride 105 mmol/L (98-107); Estimated CRCL calculation 44 ml/min; Estimated Glomerular Filt Rate > 60; Glucose 135 mg/dL (75-110); Potassium 4.2 mmol/L (3.4-5.0); Sodium 142 mmol/L (137-145)
[2020-08-14] MEDS: DEXAMETHASONE SOD PHOS INJ 4 MG/ML VIAL 6 MG IV PUSH (09:46)
[2020-08-14] MEDS: ENOXAPARIN 100 MG/ML SYRINGE 85 MG SUB-Q ×2 (09:46→20:40)
[2020-08-14] MEDS: TAMSULOSIN HCL 0.4 MG CAPSULE PO (09:46)
[2020-08-14] MEDS: MULTIVITAMINS /C LUTEIN (CENTRUM SILVER) TABLET *BKC 1 TAB PO (09:47)
[2020-08-14] MEDS: FINASTERIDE 5 MG TABLET PO (09:47)
[2020-08-14] MEDS: ASPIRIN 325 MG ENTERIC TABLET PO (09:47)
[2020-08-14] MEDS: NIACIN SA 500 MG TABLET PO ×2 (09:47→18:06)
[2020-08-14] MEDS: OPTI-GEN TAB 1 TABLET PO ×2 (09:47→18:06)
[2020-08-14] MEDS: ASCORBIC ACID 500 MG TABLET PO (09:47)
[2020-08-14] MEDS: PANTOPRAZOLE 40 MG TABLET PO (09:47)
[2020-08-14] MEDS: MAGNESIUM OXIDE 400 MG TABLET PO (09:47)
[2020-08-14] MEDS: METOPROLOL TARTRATE 12.5 MG TABLET PO ×2 (13:08→21:34)
--- NOTE | 2020-08-14 17:12 | PM.IMPN ---
Progress Note: A&P Assessment and Plan (1) Acute respiratory failure with hypoxia: Code(s): J96.01 - Acute respiratory failure with hypoxia Status: Acute Assessment and Plan: Secondary to residual of COVID pneumonia and pulmonary emboli.. Treat underlying condition with Lovenox and steroid (2) Pneumonia due to COVID-19 virus: Code(s): U07.1 - COVID-19; J12.82 - Pneumonia due to coronavirus disease 2019 Status: Acute Assessment and Plan: Does not appear to be secondary bacterial. No longer candidate for remdesivir but with hypoxia Decadron was started at 10 daily (3) Pulmonary embolism: Qualifiers: Pulmonary embolism type: multiple subsegmental (without acute cor pulmonale) Qualified Code(s): I26.94 - Multiple subsegmental pulmonary emboli without acute cor pulmonale Code(s): I26.99 - Other pulmonary embolism without acute cor pulmonale Status: Acute Assessment and Plan: Venous Doppler negative. Started on full-dose Lovenox. Echocardiogram shows only mild pulmonary hypertension with normal ejection fraction suggesting low clot burden as seen on CT (4) Elevated troponin: Code(s): R77.8 - Other specified abnormalities of plasma proteins Status: Acute Assessment and Plan: Flat response and no wall motion abnormality seen on echo. Could be secondary to pulmonary emboli and/or stress from hypoxia No true ischemic cardiac event but continue beta-blas and statin with aspirin Subjective Date/time seen: 08/14/20 17:12 Interval history: Date of visit 08/14/2020 84-year-old hypertensive male tested positive for COVID on 07/31 having had symptoms since 07/25/20. Received Bamlavibid as outpatient with some improvement but has increased shortness of breath last 2-3 days. CTA revealed with lip to be pulmonary emboli and infiltrates. Admitted with respiratory failure for treatment of pulmonary emboli and COVID pneumonia. Exam Narrative: Exam Narrative: PHYSICAL EXAM: Blood pressure 110/70 pulse is 86 saturating 100% on 12 L nasal cannula afebrile General: Acutely ill-appearing, elderly, well-nourished HEENT: pupils are equal and reactive, sclera anicteric Respiratory: no increased work of breathing, equal breath sounds faint crackle if any in the bases posteriorly Cardiovascular: Bradycardic, regular rhythm, 2+ bilateral radial pulses, 1+ bilateral pedal pulses Gastrointestinal: Soft, nontender, positive bowel sound Skin: Generalized pallor, non jaundice, cool to touch Musculoskeletal: No edema Neurological: Alert and oriented x4, speech is clear but slow, moves all extremities equally Psychiatric: Appropriate mood and affect, pleasant and cooperative : Deferred Hematologic/lymphatic: No bruising, petechiae, no anterior cervical or submandibular lymphadenopathy Objective Data Vital Signs Vital Signs: Vital Signs - 24 hr 08/13/20 18:00 08/13/20 20:00 08/13/20 22:00 Temperature 36.6 C Pulse Rate 93 97 81 Respiratory Rate 20 Blood Pressure 113/40 L Pulse Oximetry 97 08/13/20 23:10 08/13/20 23:20 08/13/20 23:46 Temperature 36.4 C Pulse Rate 77 89 Respiratory Rate 29 H 20 Blood Pressure 120/53 L Pulse Oximetry 92 100 97 08/14/20 00:00 08/14/20 02:00 08/14/20 02:42 Temperature Pulse Rate 69 64 69 Respiratory Rate 22 H Blood Pressure Pulse Oximetry 93 08/14/20 03:37 08/14/20 04:00 08/14/20 06:00 Temperature 36.6 C Pulse Rate 56 L 56 L Respiratory Rate 20 Blood Pressure 127/77 Pulse Oximetry 94 96 08/14/20 08:00 08/14/20 09:04 08/14/20 10:00 Temperature 36.8 C Pulse Rate 56 L 82 Respiratory Rate 40 H Blood Pressure 111/66 Pulse Oximetry 92 95 08/14/20 12:00 08/14/20 14:00 08/14/20 14:29 Temperature 36.6 C Pulse Rate 73 82 88 Respiratory Rate 20 20 Blood Pressure 121/54 L Pulse Oximetry 92 100 08/14/20 16:00 Temperature 36.4 C L Pulse Rate 112 H Re
[2020-08-15] VITALS (22 sets, daily range): BP systolic 104–140; BP diastolic 52–67; PULSE 43–103; RESP 19–54; TEMP 36.6–37.4; O2SAT 85–99
[2020-08-15] MEDS: METOPROLOL TARTRATE 12.5 MG TABLET PO ×2 (10:13→21:27)
[2020-08-15] MEDS: NIACIN SA 500 MG TABLET PO (10:14)
[2020-08-15] MEDS: OPTI-GEN TAB 1 TABLET PO (10:14)
[2020-08-15] MEDS: MULTIVITAMINS /C LUTEIN (CENTRUM SILVER) TABLET *BKC 1 TAB PO (10:14)
[2020-08-15] MEDS: DEXAMETHASONE SOD PHOS INJ 4 MG/ML VIAL 6 MG IV PUSH (10:15)
[2020-08-15] MEDS: ASPIRIN 325 MG ENTERIC TABLET PO (10:15)
[2020-08-15] MEDS: ASCORBIC ACID 500 MG TABLET PO (10:15)
[2020-08-15] MEDS: MAGNESIUM OXIDE 400 MG TABLET PO (10:15)
[2020-08-15] MEDS: FINASTERIDE 5 MG TABLET PO (10:15)
[2020-08-15] MEDS: TAMSULOSIN HCL 0.4 MG CAPSULE PO (10:15)
[2020-08-15] MEDS: PANTOPRAZOLE 40 MG TABLET PO (10:15)
[2020-08-15] MEDS: ENOXAPARIN 100 MG/ML SYRINGE 85 MG SUB-Q ×2 (10:16→21:26)
--- NOTE | 2020-08-15 15:59 | PM.IMPN ---
Progress Note: A&P Assessment and Plan (1) Acute respiratory failure with hypoxia: Code(s): J96.01 - Acute respiratory failure with hypoxia Status: Acute Assessment and Plan: Secondary to residual of COVID pneumonia and pulmonary emboli.. Treat underlying condition with Lovenox and steroid D#3 (2) Pneumonia due to COVID-19 virus: Code(s): U07.1 - COVID-19; J12.82 - Pneumonia due to coronavirus disease 2018 Status: Acute Assessment and Plan: Does not appear to be secondary bacterial. No longer candidate for remdesivir but with hypoxia Decadron was started at 10 daily, D#3 (3) Pulmonary embolism: Qualifiers: Pulmonary embolism type: multiple subsegmental (without acute cor pulmonale) Qualified Code(s): I26.94 - Multiple subsegmental pulmonary emboli without acute cor pulmonale Code(s): I26.99 - Other pulmonary embolism without acute cor pulmonale Status: Acute Assessment and Plan: Venous Doppler negative. Started on full-dose Lovenox. Echocardiogram shows only mild pulmonary hypertension with normal ejection fraction suggesting low clot burden as seen on CT (4) Elevated troponin: Code(s): R77.8 - Other specified abnormalities of plasma proteins Status: Acute Assessment and Plan: Flat response and no wall motion abnormality seen on echo. Could be secondary to pulmonary emboli and/or stress from hypoxia No true ischemic cardiac event but continue beta-blas and statin with aspirin Subjective Date/time seen: 08/15/20 15:59 Interval history: Date of visit 08/15/2020 84-year-old hypertensive male tested positive for COVID on 07/31 having had symptoms since 07/25/20. Received Bamlavibid as outpatient with some improvement but has increased shortness of breath last 2-3 days. CTA revealed pulmonary emboli and infiltrates. Admitted with respiratory failure for treatment of pulmonary emboli and COVID pneumonia. Exam Narrative: Exam Narrative: PHYSICAL EXAM: Blood pressure 120/56 pulse is 78 saturating 90% on 15 L nasal cannula afebrile General: Acutely ill-appearing, elderly, well-nourished HEENT: pupils are equal and reactive, sclera anicteric Respiratory: no increased work of breathing, equal breath sounds faint crackle if any in the bases posteriorly Cardiovascular: Bradycardic, regular rhythm, 2+ bilateral radial pulses, 1+ bilateral pedal pulses Gastrointestinal: Soft, nontender, positive bowel sound Skin: Generalized pallor, non jaundice, cool to touch Musculoskeletal: No edema Neurological: Alert and oriented x4, speech is clear but slow, moves all extremities equally Psychiatric: Appropriate mood and affect, pleasant and cooperative : Deferred Hematologic/lymphatic: No bruising, petechiae, no anterior cervical or submandibular lymphadenopathy Objective Data Vital Signs Vital Signs: Vital Signs - 24 hr 08/14/20 16:00 08/14/20 18:00 08/14/20 20:00 Temperature 36.4 C L 36.5 C Pulse Rate 112 H 55 L 57 L Respiratory Rate 26 H 20 Blood Pressure 111/72 116/50 L Pulse Oximetry 98 97 08/14/20 21:34 08/14/20 22:00 08/14/20 23:49 Temperature Pulse Rate 66 51 L Respiratory Rate Blood Pressure Pulse Oximetry 97 08/15/20 00:00 08/15/20 02:00 08/15/20 04:00 Temperature 36.7 C 36.6 C Pulse Rate 47 L 43 L 54 L Respiratory Rate 20 20 Blood Pressure 119/54 L 118/67 Pulse Oximetry 99 99 08/15/20 06:00 08/15/20 08:00 08/15/20 10:13 Temperature 36.6 C Pulse Rate 60 73 77 Respiratory Rate 20 Blood Pressure 140/65 Pulse Oximetry 90 08/15/20 12:00 08/15/20 13:05 Temperature 37.3 C Pulse Rate 103 H 77 Respiratory Rate 54 H 19 Blood Pressure 119/56 L Pulse Oximetry 94 95 Intake/Output Intake/Output: Intake & Output 08/12/20 08/13/20 08/14/20 08/15/20 23:59 23:59 23:59 23:59 Intake Total 1380 200 Output Total 950 500 Balance 430 -300 Meds/Results Medications
[2020-08-15] MEDS: SIMVASTATIN 20 MG TABLET PO (21:27)
[2020-08-16] VITALS (15 sets, daily range): BP systolic 106–118; BP diastolic 52–93; PULSE 57–108; RESP 12–30; TEMP 36.1–37.3; O2SAT 75–100
[2020-08-16 06:12] LABS: Basophils Percent Auto 0.2 % (0.2-1.2); Hematocrit 33.5 % (42.0-52.0); Hemoglobin 10.7 g/dL (14.0-18.0); Immature Granulocyte Absolute 0.04 K/mm3 (0.00-0.031); Immature Granulocyte Percent A 0.5 % (0-0.5); Lymphocytes Absolute Auto 0.51 K/mm3 (0.9-3.2); Lymphocytes Percent Auto 6.4 % (18.3-44.2); Mean Corpuscular HGB Conc 31.9 g/dl (32-36); Mean Corpuscular Hemoglobin 29.3 pg (26-34); Mean Corpuscular Volume 91.8 fl (80-100); Mean Platelet Volume 9.8 fl (7.4-10.4); Monocytes Absolute Auto 0.2 K/mm3 (0.1-0.6); Monocytes Percent Auto 2.4 % (2.6-8.5); Neutrophils Absolute Auto 7.3 K/mm3 (1.3-6.7); Neutrophils Percent Auto 90.5 % (45.5-73.1); Platelet Count Result 304 k/mm3 (150-375); Red Blood Count 3.65 M/mm3 (4.6-6.20); Red Cell Distribution Width 14.6 % (11.5-14.5)
[2020-08-16 06:22] LABS: Anion Gap 3 mmol/L (8-16); Blood Urea Nitrogen 28 mg/dL (9-20); Calcium 8.2 mg/dL (8.4-10.2); Carbon Dioxide 31 mmol/L (22-30); Chloride 104 mmol/L (98-107); Estimated CRCL calculation 53 ml/min; Estimated Glomerular Filt Rate > 60; Glucose 97 mg/dL (75-110); Potassium 4.4 mmol/L (3.4-5.0); Sodium 138 mmol/L (137-145)
[2020-08-16] MEDS: METOPROLOL TARTRATE 12.5 MG TABLET PO ×2 (08:59→21:20)
[2020-08-16] MEDS: NIACIN SA 500 MG TABLET PO ×2 (08:59→17:49)
[2020-08-16] MEDS: MULTIVITAMINS /C LUTEIN (CENTRUM SILVER) TABLET *BKC 1 TAB PO (08:59)
[2020-08-16] MEDS: OPTI-GEN TAB 1 TABLET PO ×2 (08:59→17:48)
[2020-08-16] MEDS: ENOXAPARIN 100 MG/ML SYRINGE 85 MG SUB-Q ×2 (09:00→21:19)
[2020-08-16] MEDS: FINASTERIDE 5 MG TABLET PO (09:00)
[2020-08-16] MEDS: ASPIRIN 325 MG ENTERIC TABLET PO (09:00)
[2020-08-16] MEDS: MAGNESIUM OXIDE 400 MG TABLET PO (09:01)
[2020-08-16] MEDS: DEXAMETHASONE SOD PHOS INJ 4 MG/ML VIAL 6 MG IV PUSH (09:01)
[2020-08-16] MEDS: PANTOPRAZOLE 40 MG TABLET PO (09:01)
[2020-08-16] MEDS: TAMSULOSIN HCL 0.4 MG CAPSULE PO (09:01)
[2020-08-16] MEDS: ASCORBIC ACID 500 MG TABLET PO (09:01)
--- NOTE | 2020-08-16 17:06 | PM.IMPN ---
Progress Note: A&P Assessment and Plan (1) Acute respiratory failure with hypoxia: Code(s): J96.01 - Acute respiratory failure with hypoxia Status: Acute Assessment and Plan: Secondary to residual of COVID pneumonia and pulmonary emboli.. Treat underlying condition with Lovenox and steroid D#4 patient and daughter decided if need be he wishes to be placed on vent (2) Pneumonia due to COVID-19 virus: Code(s): U07.1 - COVID-19; J12.82 - Pneumonia due to coronavirus disease 2018 Status: Acute Assessment and Plan: Does not appear to be secondary bacterial. No longer candidate for remdesivir but with hypoxia Decadron was started at 10 daily, D#4 repeat cxr , markers, and abg am 08/17 (3) Pulmonary embolism: Qualifiers: Pulmonary embolism type: multiple subsegmental (without acute cor pulmonale) Qualified Code(s): I26.94 - Multiple subsegmental pulmonary emboli without acute cor pulmonale Code(s): I26.99 - Other pulmonary embolism without acute cor pulmonale Status: Acute Assessment and Plan: Venous Doppler negative. Started on full-dose Lovenox. Echocardiogram shows only mild pulmonary hypertension with normal ejection fraction suggesting low clot burden as seen on CT (4) Elevated troponin: Code(s): R77.8 - Other specified abnormalities of plasma proteins Status: Acute Assessment and Plan: Flat response and no wall motion abnormality seen on echo. Could be secondary to pulmonary emboli and/or stress from hypoxia No true ischemic cardiac event but continue beta-blas and statin with aspirin Subjective Date/time seen: 08/16/20 17:06 Interval history: Date of visit 08/16/2020 84-year-old hypertensive male tested positive for COVID on 07/31 having had symptoms since 07/25/20. Received Bamlanivimab as outpatient with some improvement but has increased shortness of breath last 2-3 days prior to admission. CTA revealed pulmonary emboli and infiltrates. Admitted with respiratory failure for treatment of pulmonary emboli and COVID pneumonia. Sinigicantly in ICU on vent with respiratory failure secondary to covid Exam Narrative: Exam Narrative: PHYSICAL EXAM: Blood pressure 110/54 pulse is 80 R 30 saturating 92% on airvo 55L/M at 90% General: Acutely ill-appearing, elderly, well-nourished HEENT: pupils are equal and reactive, sclera anicteric Respiratory: increased work of breathing, equal breath sounds faint crackle in the bases posteriorly Cardiovascular: , regular rhythm, 2+ bilateral radial pulses, 1+ bilateral pedal pulses Gastrointestinal: Soft, nontender, positive bowel sound Skin: Generalized pallor, non jaundice, cool to touch Musculoskeletal: No edema Neurological: Alert and oriented x4 now but confused at times, speech is clear but slow, moves all extremities equally Psychiatric: Appropriate mood and affect, pleasant and cooperative : Deferred Hematologic/lymphatic: No bruising, petechiae, no anterior cervical or submandibular lymphadenopathy Objective Data Vital Signs Vital Signs: Vital Signs - 24 hr 08/15/20 18:00 08/15/20 19:17 08/15/20 20:00 Temperature 36.8 C Pulse Rate 68 70 79 Respiratory Rate 22 H Blood Pressure 104/52 L Pulse Oximetry 94 99 08/15/20 21:22 08/15/20 21:27 08/15/20 22:00 Temperature Pulse Rate 73 72 54 L Respiratory Rate Blood Pressure Pulse Oximetry 91 08/16/20 00:00 08/16/20 02:00 08/16/20 03:45 Temperature 36.7 C Pulse Rate 65 70 Respiratory Rate 20 Blood Pressure 112/52 L Pulse Oximetry 100 98 08/16/20 04:00 08/16/20 06:00 08/16/20 08:00 Temperature 36.1 C L 37.3 C Pulse Rate 84 91 101 H Respiratory Rate 20 24 H Blood Pressure 118/93 H 114/60 Pulse Oximetry 99 94 08/16/20 10:00 08/16/20 12:00 08/16/20 14:00 Temperature 37.2 C Pulse Rate 90 81 63 Respiratory Rate 30 H Blood Pressure 109/53 L Pulse Oximetry 92
[2020-08-16] MEDS: SIMVASTATIN 20 MG TABLET PO (21:20)
[2020-08-17] VITALS (16 sets, daily range): BP systolic 100–122; BP diastolic 47–57; PULSE 50–101; RESP 20–28; TEMP 36.2–36.6; O2SAT 91–100
[2020-08-17 05:54] LABS: Base Excess ABG 1.4 mEq/l (+/-2.0); Fractional Inspired Oxygen 91 %; HCO3 ABG 24.6 mEq/l (22.0-26.0); Oxygen Content ABG 13.9 %vol (16.0-22.0); Oxygen Saturation ABG 89.6 % (95.0-100.0); Oxyhemoglobin 87.7 % THb (90.0-100.0); PCO2 ABG 33.9 mmHg (35.0-45.0); PO2 ABG 52.2 mmHg (80.0-100.0); PO2 FiO2 Ratio Arterial Blood 0.57 %; Total Hemoglobin 11.3 g/dL (12.0-18.0); pH ABG 7.479 (7.350-7.450)
[2020-08-17 05:55] LABS: Device HIGH FLOW THERAPY; Site Drawn RIGHT BRACHIAL
[2020-08-17 06:52] LABS: Basophils Percent Auto 0.1 % (0.2-1.2); Eosinophils Percent Auto 0.1 % (0-4.4); Hematocrit 37.4 % (42.0-52.0); Hemoglobin 11.9 g/dL (14.0-18.0); Immature Granulocyte Absolute 0.03 K/mm3 (0.00-0.031); Immature Granulocyte Percent A 0.4 % (0-0.5); Lymphocytes Percent Auto 7.1 % (18.3-44.2); Mean Corpuscular HGB Conc 31.8 g/dl (32-36); Mean Corpuscular Hemoglobin 29.2 pg (26-34); Mean Corpuscular Volume 91.9 fl (80-100); Mean Platelet Volume 9.9 fl (7.4-10.4); Monocytes Absolute Auto 0.2 K/mm3 (0.1-0.6); Neutrophils Absolute Auto 7.6 K/mm3 (1.3-6.7); Neutrophils Percent Auto 90.3 % (45.5-73.1); Platelet Count Result 357 k/mm3 (150-375); Red Blood Count 4.07 M/mm3 (4.6-6.20); Red Cell Distribution Width 14.6 % (11.5-14.5); White Blood Count 8.4 K/mm3 (4.5-10.0)
[2020-08-17 07:10] LABS: Alanine Aminotransferase 43 U/L (4-50); Albumin Level 3.3 g/dL (3.5-5.1); Alkaline Phosphatase 108 U/L (38-126); Anion Gap 5 mmol/L (8-16); Aspartate Amino Transferase 41 U/L (17-59); Bilirubin,Total 0.8 mg/dL (0.2-1.3); Blood Urea Nitrogen 30 mg/dL (9-20); Calcium 8.6 mg/dL (8.4-10.2); Carbon Dioxide 31 mmol/L (22-30); Chloride 104 mmol/L (98-107); Estimated CRCL calculation 53 ml/min; Estimated Glomerular Filt Rate > 60; Glucose 102 mg/dL (75-110); Lactate Dehydrogenase 960 U/L (313-618); Magnesium 2.3 mg/dL (1.6-2.3); Phosphorus 2.7 mg/dL (2.5-4.5); Sodium 140 mmol/L (137-145)
[2020-08-17] MEDS: ASPIRIN 325 MG ENTERIC TABLET PO (09:18)
[2020-08-17] MEDS: MAGNESIUM OXIDE 400 MG TABLET PO (09:18)
[2020-08-17] MEDS: DEXAMETHASONE SOD PHOS INJ 4 MG/ML VIAL 6 MG IV PUSH (09:18)
[2020-08-17] MEDS: FINASTERIDE 5 MG TABLET PO (09:18)
[2020-08-17] MEDS: ASCORBIC ACID 500 MG TABLET PO (09:18)
[2020-08-17] MEDS: OPTI-GEN TAB 1 TABLET PO (09:19)
[2020-08-17] MEDS: NIACIN SA 500 MG TABLET PO (09:19)
[2020-08-17] MEDS: PANTOPRAZOLE 40 MG TABLET PO (09:19)
[2020-08-17] MEDS: ENOXAPARIN 100 MG/ML SYRINGE 85 MG SUB-Q ×2 (09:19→20:48)
[2020-08-17] MEDS: TAMSULOSIN HCL 0.4 MG CAPSULE PO (09:19)
[2020-08-17] MEDS: METOPROLOL TARTRATE 12.5 MG TABLET PO ×2 (09:19→20:48)
[2020-08-17] MEDS: MULTIVITAMINS /C LUTEIN (CENTRUM SILVER) TABLET *BKC 1 TAB PO (09:19)
[2020-08-17 10:22] LABS: CRP 24.9 mg/dL (<1.0)
--- NOTE | 2020-08-17 14:11 | PCDIET ---
Nutrition Follow-Up Complete: Nutrition Diagnosis: Involuntary weight loss related to decreased appetite as evidenced by patient statements, documented 9.9% weight loss x 8 months. Nutrition Goal: Patient to consume 75% of meals or greater. Goal not met. Patient with average of 50% meal consumption since 08/15/20 on heart healthy diet. Patient has declined supplements and does have reported milk allergy. Recommend liberalizing to regular diet to maximize intake. Last recorded weight is 86 kg which is increased from last review. Bowel Motility: No documented BM. Miralax prn ordered. Labs Reviewed: Hgb (11.9), Hct (37.4), BUN (30), Alb (3.3) Meds Noted: Vitamin C, Oscal 500 + D, Mag-Ox, Lopressor, Centrum, Ocuvite, Niacin, Protonix, Zocor, Miralax Additional Notes: No documented skin breakdown. Will continue to monitor with same goal. Nutrition Monitoring and Evaluation: Follow up every 5 days.
--- NOTE | 2020-08-17 15:35 | PM.IMPN ---
Progress Note: A&P Assessment and Plan (1) Acute respiratory failure with hypoxia: Code(s): J96.01 - Acute respiratory failure with hypoxia Status: Acute Assessment and Plan: Secondary to residual of COVID pneumonia and pulmonary emboli.. Treat underlying condition with Lovenox and steroid D#5 patient and daughter decided if need be ,he wishes to be placed on vent Discuss the poor prognosis with patient's daughter today. She said she will follow her father's decision about whether or not to be intubated if needed. As above he presently continues to be full intubation status (2) Pneumonia due to COVID-19 virus: Code(s): U07.1 - COVID-19; J12.82 - Pneumonia due to coronavirus disease 2019 Status: Acute Assessment and Plan: Does not appear to be secondary bacterial. No longer candidate for remdesivir but with hypoxia Decadron was started at 10 daily, D#5 Repeat chest x-ray still diffuse disease and repeat inflammatory markers fall still elevated (3) Pulmonary embolism: Qualifiers: Pulmonary embolism type: multiple subsegmental (without acute cor pulmonale) Qualified Code(s): I26.94 - Multiple subsegmental pulmonary emboli without acute cor pulmonale Code(s): I26.99 - Other pulmonary embolism without acute cor pulmonale Status: Acute Assessment and Plan: Venous Doppler negative. Started on full-dose Lovenox. Echocardiogram shows only mild pulmonary hypertension with normal ejection fraction suggesting low clot burden as seen on CT (4) Elevated troponin: Code(s): R77.8 - Other specified abnormalities of plasma proteins Status: Acute Assessment and Plan: Flat response and no wall motion abnormality seen on echo. Could be secondary to pulmonary emboli and/or stress from hypoxia No true ischemic cardiac event but continue beta-blas and statin with aspirin Subjective Date/time seen: 08/17/20 15:35 Interval history: Date of visit 08/17/2020 84-year-old hypertensive male tested positive for COVID on 07/31 having had symptoms since 07/25/20. Received Bamlanivimab as outpatient with some improvement but has increased shortness of breath last 2-3 days prior to admission. CTA revealed pulmonary emboli and infiltrates. Admitted with respiratory failure for treatment of pulmonary emboli and COVID pneumonia. Sinigicantly in ICU on vent with respiratory failure secondary to covid Exam Narrative: Exam Narrative: PHYSICAL EXAM: Blood pressure 106/48 pulse is 76 R 22 saturating 95% on airvo 55L/M at 90% General: Acutely ill-appearing, elderly, well-nourished HEENT: pupils are equal and reactive, sclera anicteric Respiratory: increased work of breathing, equal breath sounds faint crackle in the bases posteriorly Cardiovascular: , regular rhythm, 2+ bilateral radial pulses, 1+ bilateral pedal pulses Gastrointestinal: Soft, nontender, positive bowel sound Skin: Generalized pallor, non jaundice, cool to touch Musculoskeletal: No edema Neurological: Alert and oriented x4 now , speech is clear but slow, moves all extremities equally Psychiatric: Appropriate mood and affect, pleasant and cooperative : carter cath now Hematologic/lymphatic: No bruising, petechiae, no anterior cervical or submandibular lymphadenopathy Objective Data Vital Signs Vital Signs: Vital Signs - 24 hr 08/16/20 16:00 08/16/20 18:00 08/16/20 20:00 Temperature 37.1 C 36.3 C L Pulse Rate 71 81 84 Respiratory Rate 12 22 H Blood Pressure 111/58 L 106/52 L Pulse Oximetry 92 97 08/16/20 21:20 08/16/20 22:00 08/16/20 22:55 Temperature Pulse Rate 84 94 94 Respiratory Rate Blood Pressure Pulse Oximetry 94 08/17/20 00:00 08/17/20 02:00 08/17/20 04:00 Temperature 36.2 C L 36.3 C L Pulse Rate 68 74 74 Respiratory Rate 20 20 Blood Pressure 111/54 L 115/52 L Pulse Oximetry 96 96 08/17/20 06:00 08/17/20 08:00 08/17/20 09:19 Temperature
[2020-08-17] MEDS: SIMVASTATIN 20 MG TABLET PO (20:48)
[2020-08-18] VITALS (19 sets, daily range): BP systolic 92–127; BP diastolic 43–54; PULSE 50–96; RESP 20–28; TEMP 36.1–36.4; O2SAT 84–100
[2020-08-18] MEDS: ASPIRIN 325 MG ENTERIC TABLET PO (09:35)
[2020-08-18] MEDS: ASCORBIC ACID 500 MG TABLET PO (09:35)
[2020-08-18] MEDS: DEXAMETHASONE SOD PHOS INJ 4 MG/ML VIAL 6 MG IV PUSH (09:35)
[2020-08-18] MEDS: ENOXAPARIN 100 MG/ML SYRINGE 85 MG SUB-Q ×2 (09:35→21:17)
[2020-08-18] MEDS: MAGNESIUM OXIDE 400 MG TABLET PO (09:36)
[2020-08-18] MEDS: METOPROLOL TARTRATE 12.5 MG TABLET PO ×2 (09:36→21:17)
[2020-08-18] MEDS: FINASTERIDE 5 MG TABLET PO (09:36)
[2020-08-18] MEDS: PANTOPRAZOLE 40 MG TABLET PO (09:37)
[2020-08-18] MEDS: TAMSULOSIN HCL 0.4 MG CAPSULE PO (09:37)
[2020-08-18] MEDS: OPTI-GEN TAB 1 TABLET PO ×2 (09:37→16:11)
[2020-08-18] MEDS: NIACIN SA 500 MG TABLET PO ×2 (09:38→16:12)
[2020-08-18] MEDS: MULTIVITAMINS /C LUTEIN (CENTRUM SILVER) TABLET *BKC 1 TAB PO (09:38)
--- NOTE | 2020-08-18 15:43 | PM.IMPN ---
Progress Note: A&P Assessment and Plan (1) Acute respiratory failure with hypoxia: Code(s): J96.01 - Acute respiratory failure with hypoxia Status: Acute Assessment and Plan: Secondary to residual of COVID pneumonia and pulmonary emboli.. Treat underlying condition with Lovenox and steroid D#6 patient and daughter decided if need be ,he wishes to be placed on vent Discussed the poor prognosis with patient's daughter 08/17. She said she will follow her father's decision about whether or not to be intubated if needed. As above he presently continues to be full intubation status have been able to taper 02 requirements slighlty last 24 hours (2) Pneumonia due to COVID-19 virus: Code(s): U07.1 - COVID-19; J12.82 - Pneumonia due to coronavirus disease 2019 Status: Acute Assessment and Plan: Does not appear to be secondary bacterial. No longer candidate for remdesivir but with hypoxia Decadron was started at 6 mg daily, D#6 Repeat chest x-ray still diffuse disease and repeat inflammatory markers fall still elevated (3) Pulmonary embolism: Qualifiers: Pulmonary embolism type: multiple subsegmental (without acute cor pulmonale) Qualified Code(s): I26.94 - Multiple subsegmental pulmonary emboli without acute cor pulmonale Code(s): I26.99 - Other pulmonary embolism without acute cor pulmonale Status: Acute Assessment and Plan: Venous Doppler negative. Started on full-dose Lovenox. Echocardiogram shows only mild pulmonary hypertension with normal ejection fraction suggesting low clot burden as seen on CT (4) Elevated troponin: Code(s): R77.8 - Other specified abnormalities of plasma proteins Status: Acute Assessment and Plan: Flat response and no wall motion abnormality seen on echo. Could be secondary to pulmonary emboli and/or stress from hypoxia No true ischemic cardiac event but continue beta-blas and statin with aspirin Subjective Date/time seen: 08/18/20 15:43 Interval history: Date of visit 08/18/2020 84-year-old hypertensive male tested positive for COVID on 07/31 having had symptoms since 07/25/20. Received Bamlanivimab as outpatient with some improvement but has increased shortness of breath 2-3 days prior to admission. CTA revealed pulmonary emboli and infiltrates. Admitted with respiratory failure for treatment of pulmonary emboli and COVID pneumonia. Significantly was in ICU on vent with respiratory failure secondary to covid and 08/17 Exam Narrative: Exam Narrative: PHYSICAL EXAM: Blood pressure 104/52 pulse is 78 R 22 saturating 96% on airvo 30L/M at 87% General: Acutely ill-appearing, elderly, well-nourished HEENT: pupils are equal and reactive, sclera anicteric Respiratory: increased work of breathing, equal breath sounds faint crackle in the bases posteriorly Cardiovascular: , regular rhythm, 2+ bilateral radial pulses, 1+ bilateral pedal pulses Gastrointestinal: Soft, nontender, positive bowel sound carter in place Skin: Generalized pallor, non jaundice, cool to touch Musculoskeletal: No edema Neurological: Alert and oriented x4 now , speech is clear , moves all extremities equally Psychiatric: Appropriate mood and affect, pleasant and cooperative : carter cath now Hematologic/lymphatic: No bruising, petechiae, no anterior cervical or submandibular lymphadenopathy Objective Data Vital Signs Vital Signs: Vital Signs - 24 hr 08/17/20 16:00 08/17/20 18:00 08/17/20 20:00 Temperature 36.5 C 36.6 C Pulse Rate 68 87 67 Respiratory Rate 22 H 20 Blood Pressure 100/47 L 122/50 L Pulse Oximetry 100 99 08/17/20 20:48 08/17/20 22:00 08/17/20 22:21 Temperature Pulse Rate 67 69 Respiratory Rate 20 Blood Pressure Pulse Oximetry 99 98 08/18/20 00:00 08/18/20 01:31 08/18/20 04:00 Temperature 36.1 C L 36.3 C L Pulse Rate 50 L 57 L 53 L Respiratory Rate 20 20 Blood Pressure 116/
[2020-08-18] MEDS: SIMVASTATIN 20 MG TABLET PO (21:17)
[2020-08-19] VITALS (19 sets, daily range): BP systolic 95–115; BP diastolic 48–66; PULSE 52–91; RESP 20–24; TEMP 35.9–36.4; O2SAT 95–100
[2020-08-19 06:06] LABS: Eosinophils Percent Auto 0.1 % (0-4.4); Hematocrit 33.2 % (42.0-52.0); Hemoglobin 10.4 g/dL (14.0-18.0); Immature Granulocyte Absolute 0.03 K/mm3 (0.00-0.031); Immature Granulocyte Percent A 0.4 % (0-0.5); Lymphocytes Absolute Auto 0.57 K/mm3 (0.9-3.2); Mean Corpuscular HGB Conc 31.3 g/dl (32-36); Mean Corpuscular Hemoglobin 28.9 pg (26-34); Mean Corpuscular Volume 92.2 fl (80-100); Mean Platelet Volume 10.4 fl (7.4-10.4); Monocytes Absolute Auto 0.3 K/mm3 (0.1-0.6); Monocytes Percent Auto 3.8 % (2.6-8.5); Neutrophils Absolute Auto 6.2 K/mm3 (1.3-6.7); Neutrophils Percent Auto 87.7 % (45.5-73.1); Platelet Count Result 331 k/mm3 (150-375); Red Cell Distribution Width 14.2 % (11.5-14.5); White Blood Count 7.1 K/mm3 (4.5-10.0)
[2020-08-19 06:51] LABS: Alanine Aminotransferase 55 U/L (4-50); Albumin Level 2.7 g/dL (3.5-5.1); Alkaline Phosphatase 82 U/L (38-126); Anion Gap -2 mmol/L (8-16); Aspartate Amino Transferase 40 U/L (17-59); Bilirubin,Total 0.5 mg/dL (0.2-1.3); Blood Urea Nitrogen 30 mg/dL (9-20); CRP 14.5 mg/dL (<1.0); Calcium 7.8 mg/dL (8.4-10.2); Carbon Dioxide 33 mmol/L (22-30); Chloride 104 mmol/L (98-107); Estimated CRCL calculation 59 ml/min; Estimated Glomerular Filt Rate > 60; Glucose 103 mg/dL (75-110); Lactate Dehydrogenase 761 U/L (313-618); Potassium 4.2 mmol/L (3.4-5.0); Sodium 135 mmol/L (137-145)
[2020-08-19] MEDS: MULTIVITAMINS /C LUTEIN (CENTRUM SILVER) TABLET *BKC 1 TAB PO (08:43)
[2020-08-19] MEDS: ASCORBIC ACID 500 MG TABLET PO (08:44)
[2020-08-19] MEDS: METOPROLOL TARTRATE 12.5 MG TABLET PO ×2 (08:44→21:42)
[2020-08-19] MEDS: PANTOPRAZOLE 40 MG TABLET PO (08:44)
[2020-08-19] MEDS: FINASTERIDE 5 MG TABLET PO (08:44)
[2020-08-19] MEDS: NIACIN SA 500 MG TABLET PO ×2 (08:44→17:23)
[2020-08-19] MEDS: ENOXAPARIN 100 MG/ML SYRINGE 85 MG SUB-Q ×2 (08:45→21:43)
[2020-08-19] MEDS: TAMSULOSIN HCL 0.4 MG CAPSULE PO (08:45)
[2020-08-19] MEDS: DEXAMETHASONE SOD PHOS INJ 4 MG/ML VIAL 6 MG IV PUSH (08:45)
[2020-08-19] MEDS: ASPIRIN 325 MG ENTERIC TABLET PO (08:45)
[2020-08-19] MEDS: OPTI-GEN TAB 1 TABLET PO ×2 (08:45→17:23)
[2020-08-19] MEDS: MAGNESIUM OXIDE 400 MG TABLET PO (08:46)
--- NOTE | 2020-08-19 16:11 | PM.IMPN ---
Progress Note: A&P Assessment and Plan (1) Acute respiratory failure with hypoxia: Code(s): J96.01 - Acute respiratory failure with hypoxia Status: Acute Assessment and Plan: Secondary to residual of COVID pneumonia and pulmonary emboli.. Treat underlying condition with Lovenox and steroid D#7 patient and daughter decided if need be ,he wishes to be placed on vent Discussed the poor prognosis with patient's daughter 08/17. She said she will follow her father's decision about whether or not to be intubated if needed. As above he presently continues to be full intubation status 02 requirements have not changed last 24 hours gave eleanor update again today (2) Pneumonia due to COVID-19 virus: Code(s): U07.1 - COVID-19; J12.82 - Pneumonia due to coronavirus disease 2019 Status: Acute Assessment and Plan: Does not appear to be secondary bacterial. No longer candidate for remdesivir but with hypoxia Decadron was started at 6 mg daily, D#7 Repeat chest x-ray 08/17 still diffuse disease but repeat inflammatory markers slightly decreased today (3) Pulmonary embolism: Qualifiers: Pulmonary embolism type: multiple subsegmental (without acute cor pulmonale) Qualified Code(s): I26.94 - Multiple subsegmental pulmonary emboli without acute cor pulmonale Code(s): I26.99 - Other pulmonary embolism without acute cor pulmonale Status: Acute Assessment and Plan: Venous Doppler negative. Started on full-dose Lovenox. Echocardiogram shows only mild pulmonary hypertension with normal ejection fraction suggesting low clot burden as seen on CT (4) Elevated troponin: Code(s): R77.8 - Other specified abnormalities of plasma proteins Status: Acute Assessment and Plan: Flat response and no wall motion abnormality seen on echo. Could be secondary to pulmonary emboli and/or stress from hypoxia No true ischemic cardiac event but continue beta-blas and statin with aspirin Subjective Date/time seen: 08/19/20 16:11 Interval history: Date of visit 08/19/2020 84-year-old hypertensive male tested positive for COVID on 07/31 having had symptoms since 07/25/20. Received Bamlanivimab as outpatient with some improvement but has increased shortness of breath 2-3 days prior to admission. CTA revealed pulmonary emboli and infiltrates. Admitted with respiratory failure for treatment of pulmonary emboli and COVID pneumonia. Significantly was in ICU on vent with respiratory failure secondary to covid and 08/17 Exam Narrative: Exam Narrative: PHYSICAL EXAM: Blood pressure 96/50 pulse is 74 R 24 saturating 96% on airvo 35L/M at 87% General: Acutely ill-appearing, elderly, well-nourished HEENT: pupils are equal and reactive, sclera anicteric Respiratory: increased work of breathing, equal breath sounds crackled in the bases posteriorly, tires with conversation and 02 sat fell some Cardiovascular: , regular rhythm, 2+ bilateral radial pulses, 1+ bilateral pedal pulses Gastrointestinal: Soft, nontender, positive bowel sound carter in place, yellow urine Skin: Generalized pallor, non jaundice, cool to touch Musculoskeletal: No edema Neurological: Alert and oriented x4 now , speech is clear , moves all extremities equally Psychiatric: Appropriate mood and affect, pleasant and cooperative Objective Data Vital Signs Vital Signs: Vital Signs - 24 hr 08/18/20 18:00 08/18/20 20:00 08/18/20 21:17 Temperature 36.2 C L Pulse Rate 76 63 62 Respiratory Rate 22 H Blood Pressure 99/47 L Pulse Oximetry 99 08/18/20 21:30 08/18/20 22:00 08/18/20 23:44 Temperature 36.2 C L Pulse Rate 94 68 64 Respiratory Rate 28 H 22 H Blood Pressure 110/48 L Pulse Oximetry 84 L 100 08/19/20 00:00 08/19/20 02:00 08/19/20 04:00 Temperature 36.2 C L Pulse Rate 56 L 54 L 55 L Respiratory Rate 22 H 20 Blood Pressure 115/66 Pulse Oximetry 100 96 07/22
[2020-08-19] MEDS: SIMVASTATIN 20 MG TABLET PO (21:43)
[2020-08-20] VITALS (24 sets, daily range): BP systolic 105–118; BP diastolic 45–59; PULSE 56–109; RESP 20–38; TEMP 36.4–37.1; O2SAT 88–100
--- NOTE | 2020-08-20 03:02 | PC.NURSE ---
PATIENT WAS VERY ANGRY WHEN ASSESSMENT WAS DONE AND KEPT DEMANDING TO BE LEFT ALONE. HE WAS TRYING TO REFUSE HIS MEDICATION BUT FINALLY TOOK HIS MEDS UPON REQUEST OF BEING LEFT ALONE.
--- NOTE | 2020-08-20 07:05 | PC.NURSE ---
respiratory called about patient low o2 sat. patient placed on non- rebreather along with airvo until respiratory sees patient.
[2020-08-20] MEDS: ASPIRIN 325 MG ENTERIC TABLET PO (08:43)
[2020-08-20] MEDS: ENOXAPARIN 100 MG/ML SYRINGE 85 MG SUB-Q ×2 (08:43→21:06)
[2020-08-20] MEDS: METOPROLOL TARTRATE 12.5 MG TABLET PO ×2 (08:44→21:06)
[2020-08-20] MEDS: OPTI-GEN TAB 1 TABLET PO ×2 (08:44→17:16)
[2020-08-20] MEDS: MAGNESIUM OXIDE 400 MG TABLET PO (08:44)
[2020-08-20] MEDS: MULTIVITAMINS /C LUTEIN (CENTRUM SILVER) TABLET *BKC 1 TAB PO (08:44)
[2020-08-20] MEDS: NIACIN SA 500 MG TABLET PO ×2 (08:44→17:16)
[2020-08-20] MEDS: TAMSULOSIN HCL 0.4 MG CAPSULE PO (08:44)
[2020-08-20] MEDS: PANTOPRAZOLE 40 MG TABLET PO (08:44)
[2020-08-20] MEDS: ASCORBIC ACID 500 MG TABLET PO (08:44)
[2020-08-20] MEDS: FINASTERIDE 5 MG TABLET PO (08:44)
[2020-08-20] MEDS: DEXAMETHASONE SOD PHOS INJ 4 MG/ML VIAL 6 MG IV PUSH (08:44)
--- NOTE | 2020-08-20 16:38 | PM.IMPN ---
Progress Note: A&P Assessment and Plan (1) Acute respiratory failure with hypoxia: Code(s): J96.01 - Acute respiratory failure with hypoxia Status: Acute Assessment and Plan: Secondary to residual of COVID pneumonia and pulmonary emboli. Treat underlying condition with Lovenox and steroids. Patient and daughter have decided if need be, he wishes to be placed on vent. Poor prognosis discussed with patient's daughter 08/17 by other provider. She said she will follow her father's decision about whether or not to be intubated if needed. Wean O2 as tolerated. Addinhalers. (2) Pneumonia due to COVID-19 virus: Code(s): U07.1 - COVID-19; J12.82 - Pneumonia due to coronavirus disease 2019 Status: Acute Assessment and Plan: Does not appear to be a secondary bacterial infection. No longer a candidate for remdesivir but with hypoxia, Decadron was started at 6 mg daily, D#8 (started on 08/13). Repeat chest x-ray 08/17 still showing diffuse disease but repeat inflammatory markers slightly decreased yesterday. Continue steroids. (3) Pulmonary embolism: Qualifiers: Pulmonary embolism type: multiple subsegmental (without acute cor pulmonale) Qualified Code(s): I26.94 - Multiple subsegmental pulmonary emboli without acute cor pulmonale Code(s): I26.99 - Other pulmonary embolism without acute cor pulmonale Status: Acute Assessment and Plan: CTA Chest 08/13/20 showing acute pulmonary emboli in right middle lobe and right lower lobe. Venous Doppler negative. Started on full-dose Lovenox. Echo shows only mild pulmonary hypertension with normal ejection fraction suggesting low clot burden as seen on CT. Change to Eliquis in a few days if his condition starts to improve. (4) Elevated troponin: Code(s): R77.8 - Other specified abnormalities of plasma proteins Status: Acute Assessment and Plan: Flat response and no wall motion abnormality seen on echo. Could be secondary to pulmonary emboli and/or stress from hypoxia. Not felt to have had a true ischemic cardiac event. Continue beta-blas, statin and aspirin. Change to baby ASA. Subjective Date/time seen: 08/20/20 16:38 Interval history: Date of visit 08/20 84-year-old male with HTN who tested positive for COVID on 07/31 having had symptoms since 1/6/21. Received Bamlanivimab as outpatient with some improvement but has increased shortness of breath 2-3 days prior to admission. CTA revealed pulmonary emboli and infiltrates. Admitted with respiratory failure for treatment of pulmonary emboli and COVID pneumonia. Significantly, his was in ICU on vent with respiratory failure secondary to covid and 08/17/20. Assuming care. Chart reviewed. Erick feels his SOB is the same. No CP. Eating oaky. No n/v/d. Requesting discharge. No numbness/tingling in his right hand. Exam Narrative: Exam Narrative: AF 98.3 111/59 89 22 100% HFNC on 40L/min on 70%% Gen - NARD lying semi-recumbent in bed Chest - few inspiratory rhonchi posteriorly. CV - RRR S1/S2; Tele showing PVCs Abd - Soft, NT/ND, Positive BS - Calle secured with yellowish urine in the bag Ext - No pedal edema Neuro - Alert and oriented. Nonfocal exam. Normal human services care specialist Psych - Nml mood but unhappy affect Skin - Warm and dry Objective Data Vital Signs Vital Signs: Vital Signs - 24 hr 08/19/20 18:00 08/19/20 20:00 08/19/20 21:12 Temperature 97.6 F Pulse Rate 91 77 Respiratory Rate 22 H Blood Pressure 105/63 Pulse Oximetry 99 96 08/19/20 21:42 08/19/20 22:00 08/19/20 23:13 Temperature 97.6 F Pulse Rate 81 77 70 Respiratory Rate 22 H Blood Pressure 107/52 L Pulse Oximetry 99 08/20/20 00:00 08/20/20 02:00 08/20/20 04:00 Temperature 97.6 F Pulse Rate 56 L 56 L 78 Respiratory Rate 22 H 20 Blood Pressure 115/45 L Pulse Oximetry 99 94 08/20/20 06:00 08/20/20 07:01 08/20/20 08
[2020-08-20] MEDS: LEVALBUTEROL HFA (*SP) 15 GM INHALER 2 PUFF INHALATION (20:42)
[2020-08-20] MEDS: SIMVASTATIN 20 MG TABLET PO (21:06)
[2020-08-20] MEDS: guaiFENesin/DEXTROMETHORPHAN 10 ML UDC 5 ML PO (21:06)
[2020-08-21] VITALS (23 sets, daily range): BP systolic 96–120; BP diastolic 47–59; PULSE 69–122; RESP 20–28; TEMP 36–36.6; O2SAT 88–100
[2020-08-21 05:52] LABS: Basophils Percent Auto 0.1 % (0.2-1.2); Eosinophils Percent Auto 0.1 % (0-4.4); Hematocrit 33.1 % (42.0-52.0); Hemoglobin 10.8 g/dL (14.0-18.0); Immature Granulocyte Absolute 0.05 K/mm3 (0.00-0.031); Immature Granulocyte Percent A 0.6 % (0-0.5); Lymphocytes Absolute Auto 0.61 K/mm3 (0.9-3.2); Lymphocytes Percent Auto 6.7 % (18.3-44.2); Mean Corpuscular HGB Conc 32.6 g/dl (32-36); Mean Corpuscular Hemoglobin 28.7 pg (26-34); Mean Platelet Volume 10.2 fl (7.4-10.4); Monocytes Absolute Auto 0.4 K/mm3 (0.1-0.6); Monocytes Percent Auto 4.3 % (2.6-8.5); Neutrophils Percent Auto 88.2 % (45.5-73.1); Platelet Count Result 436 k/mm3 (150-375); Red Blood Count 3.76 M/mm3 (4.6-6.20); Red Cell Distribution Width 13.9 % (11.5-14.5); White Blood Count 9.1 K/mm3 (4.5-10.0)
--- NOTE | 2020-08-21 05:55 | PC.NURSE ---
PATIENT WAS CONFUSED AND WAS ASKING WHERE HIS WAS AND WAS DEMANDING TO SPEAK TO HER. I DIFFUSED THE SITUATION BY CHANGING THE SUBJECT, BUT THE PATIENT SEEMS TO HAVE A HARD TIME COMPREHENDING THINGS THIS MORNING.
[2020-08-21 06:10] LABS: Anion Gap 3 mmol/L (8-16); Blood Urea Nitrogen 27 mg/dL (9-20); Calcium 7.9 mg/dL (8.4-10.2); Carbon Dioxide 33 mmol/L (22-30); Chloride 102 mmol/L (98-107); Estimated CRCL calculation 53 ml/min; Estimated Glomerular Filt Rate > 60; Glucose 120 mg/dL (75-110); Lactate Dehydrogenase 661 U/L (313-618); Sodium 138 mmol/L (137-145)
[2020-08-21 06:25] LABS: CRP 12.8 mg/dL (<1.0)
--- NOTE | 2020-08-21 06:56 | PC.NURSE ---
PATIENT IS BECOMING MORE INCREASINGLY CONFUSED AND TAKING HIS OXYGEN OFF AND GETTING ANGRY WHEN WE TRY TO PUT IT BACK ON. PATIENT IS AWARE THAT HE IS BECOMING CONFUSED AND STATES THAT HE FEELS CONFUSED.
[2020-08-21] MEDS: TAMSULOSIN HCL 0.4 MG CAPSULE PO (08:33)
[2020-08-21] MEDS: FINASTERIDE 5 MG TABLET PO (08:33)
[2020-08-21] MEDS: MULTIVITAMINS /C LUTEIN (CENTRUM SILVER) TABLET *BKC 1 TAB PO (08:33)
[2020-08-21] MEDS: ASCORBIC ACID 500 MG TABLET PO (08:33)
[2020-08-21] MEDS: MAGNESIUM OXIDE 400 MG TABLET PO (08:33)
[2020-08-21] MEDS: METOPROLOL TARTRATE 12.5 MG TABLET PO ×2 (08:33→21:27)
[2020-08-21] MEDS: OPTI-GEN TAB 1 TABLET PO ×2 (08:33→17:30)
[2020-08-21] MEDS: NIACIN SA 500 MG TABLET PO ×2 (08:33→17:30)
[2020-08-21] MEDS: PANTOPRAZOLE 40 MG TABLET PO (08:35)
[2020-08-21] MEDS: DEXAMETHASONE SOD PHOS INJ 4 MG/ML VIAL 6 MG IV PUSH (08:35)
[2020-08-21] MEDS: ASPIRIN 81 MG ENTERIC TABLET PO (08:35)
[2020-08-21] MEDS: ENOXAPARIN 100 MG/ML SYRINGE 85 MG SUB-Q ×2 (08:37→21:27)
--- NOTE | 2020-08-21 10:38 | PM.IMPN ---
Progress Note: A&P Assessment and Plan (1) Acute respiratory failure with hypoxia: Code(s): J96.01 - Acute respiratory failure with hypoxia Status: Acute Assessment and Plan: Secondary to residual of COVID pneumonia and pulmonary emboli. Treat underlying condition with Lovenox and steroids. Patient and daughter have decided if need be, he wishes to be placed on vent. Poor prognosis discussed with patient's daughter 08/17 by other provider. She said she will follow her father's decision about whether or not to be intubated if needed. Condition worsening with increasing O2 requirement. He also looks tired. Check ABG and CXR. Notify educational therapy teacher. Patient informed that his condition is worsening and he may need to be intubated. Dtr called and informed of this change. ABG normal but pCO2 'normal' which could be ominous. CXR showing some benefits in areas. Continue to monitor. Discussed with educational therapy teacher (2) Pneumonia due to COVID-19 virus: Code(s): U07.1 - COVID-19; J12.82 - Pneumonia due to coronavirus disease 2019 Status: Acute Assessment and Plan: Does not appear to be a secondary bacterial infection. No longer a candidate for remdesivir. Decadron was started at 6 mg daily, D#9 (started on 08/13). Repeat chest x-ray 08/17 still showing diffuse disease but repeat inflammatory markers decreased today. Continue steroids, MDI. (3) Pulmonary embolism: Qualifiers: Pulmonary embolism type: multiple subsegmental (without acute cor pulmonale) Qualified Code(s): I26.94 - Multiple subsegmental pulmonary emboli without acute cor pulmonale Code(s): I26.99 - Other pulmonary embolism without acute cor pulmonale Status: Acute Assessment and Plan: CTA Chest 08/13/20 showing acute pulmonary emboli in right middle lobe and right lower lobe. Venous Doppler negative. Started on full-dose Lovenox. Echo shows only mild pulmonary hypertension with normal ejection fraction suggesting low clot burden as seen on CT. Continue Lovenox. (4) Elevated troponin: Code(s): R77.8 - Other specified abnormalities of plasma proteins Status: Acute Assessment and Plan: Troponin elevated to 0.33 before trending down. Overall a flat response and no wall motion abnormality seen on echo. Could be secondary to pulmonary emboli and/or stress from hypoxia. Not felt to have had a true ischemic cardiac event. Continue beta-blas, statin and aspirin. Subjective Date/time seen: 08/21/20 10:38 Interval history: Date of visit 08/21 84-year-old male with HTN who tested positive for COVID on 07/31 having had symptoms since 07/25/20. Received Bamlanivimab as outpatient with some improvement but has increased shortness of breath 2-3 days prior to admission. CTA revealed pulmonary emboli and infiltrates. Admitted with respiratory failure for treatment of pulmonary emboli and COVID pneumonia. Significantly, his was in ICU on vent with respiratory failure secondary to covid and 08/17/20. Patient denies feeling SOB but having increase in O2 requirement. He denies CP or abd pain. No issues overnight. He states he was intubated before and is okay with going back on the ventilator if needed. Exam Narrative: Exam Narrative: AF 96.8 104/55 122 21 90% on AirVo on 45L/min on 90% + NRB mask Gen - NARD lying semi-recumbent in bed Chest - inspiratory crackles appreciated in the flanks CV - RRR S1/S2; Tele showing PVCs Abd - Soft, NT/ND, Positive BS - Calle secured with yellowish urine in the bag Ext - No pedal edema Neuro - Alert and orientedx4 but subdued Psych - not as animated today Skin - cool and dry Objective Data Vital Signs Vital Signs: Vital Signs - 24 hr 08/20/20 11:01 08/20/20 12:00 08/20/20 12:29 Temperature 98.4 F Pulse Rate 87 87 Respiratory Rate 22 H 22 H Blood Pressure 108/57 L Pulse Oximetry 96 97 97 08/20/20 13:56
[2020-08-21 11:23] LABS: Alveolar/Arterial O2 Gradient 589.2 mmHg; Base Excess ABG 5.6 mEq/l (+/-2.0); Fractional Inspired Oxygen 100 %; HCO3 ABG 29.7 mEq/l (22.0-26.0); Modified Allen's Test Pass; Oxygen Content ABG 15.5 %vol (16.0-22.0); Oxygen Saturation ABG 96.7 % (95.0-100.0); Oxyhemoglobin 95.5 % THb (90.0-100.0); PCO2 ABG 41.4 mmHg (35.0-45.0); PO2 ABG 82.4 mmHg (80.0-100.0); PO2 FiO2 Ratio Arterial Blood 0.82 %; Site Drawn RIGHT RADIAL; Total Hemoglobin 11.5 g/dL (12.0-18.0); pH ABG 7.474 (7.350-7.450)
[2020-08-21 11:24] LABS: Device HIGH FLOW THERAPY
[2020-08-21] MEDS: LEVALBUTEROL HFA (*SP) 15 GM INHALER 2 PUFF INHALATION ×2 (14:12→21:28)
[2020-08-21] MEDS: SIMVASTATIN 20 MG TABLET PO (21:27)
[2020-08-22] VITALS (23 sets, daily range): BP systolic 97–108; BP diastolic 48–66; PULSE 56–116; RESP 20–24; TEMP 36.1–36.6; O2SAT 88–100
[2020-08-22] MEDS: DEXAMETHASONE SOD PHOS INJ 4 MG/ML VIAL 6 MG IV PUSH (08:05)
[2020-08-22] MEDS: OPTI-GEN TAB 1 TABLET PO ×2 (08:05→16:40)
[2020-08-22] MEDS: PANTOPRAZOLE 40 MG TABLET PO (08:06)
[2020-08-22] MEDS: ASCORBIC ACID 500 MG TABLET PO (08:06)
[2020-08-22] MEDS: NIACIN SA 500 MG TABLET PO ×2 (08:06→16:40)
[2020-08-22] MEDS: ENOXAPARIN 100 MG/ML SYRINGE 85 MG SUB-Q ×2 (08:06→20:25)
[2020-08-22] MEDS: MAGNESIUM OXIDE 400 MG TABLET PO (08:06)
[2020-08-22] MEDS: TAMSULOSIN HCL 0.4 MG CAPSULE PO (08:06)
[2020-08-22] MEDS: ASPIRIN 81 MG ENTERIC TABLET PO (08:06)
[2020-08-22] MEDS: FINASTERIDE 5 MG TABLET PO (08:06)
[2020-08-22] MEDS: MULTIVITAMINS /C LUTEIN (CENTRUM SILVER) TABLET *BKC 1 TAB PO (08:06)
[2020-08-22] MEDS: METOPROLOL TARTRATE 12.5 MG TABLET PO ×2 (08:06→20:24)
[2020-08-22] MEDS: LEVALBUTEROL HFA (*SP) 15 GM INHALER 2 PUFF INHALATION ×3 (08:12→20:37)
--- NOTE | 2020-08-22 11:48 | PCDIET ---
Nutrition Follow-Up Complete: Nutrition Diagnosis: Involuntary weight loss related to decreased appetite as evidenced by patient statements, documented 9.9% weight loss x 8 months. Nutrition Goal: Patient to consume 75% of meals or greater. Goal in progress. Patient consumed 100% of meals until 08/21/20 and has since consumed around 50%, on average, on heart healthy diet. Last recorded weight is 84 kg which is stable. Bowel Motility: Last documented BM on 08/21/20 x 1. Labs Reviewed: Hgb (10.8), Hct (33.1), Glu (120), BUN (27), Terrance Ca (8.94) Meds Noted: Vitamin C, Oscal 500 + D, Xopenex, Mag-Ox, Lopressor, Centrum, Ocuvite, Niacin, Protonix, Zocor Additional Notes: No documented skin breakdown. No new recommendations at this time. Will continue to monitor with same goal. Nutrition Monitoring and Evaluation: Follow up every 5 days.
--- NOTE | 2020-08-22 13:06 | PM.IMPN ---
Progress Note: A&P Assessment and Plan (1) Acute respiratory failure with hypoxia: Code(s): J96.01 - Acute respiratory failure with hypoxia Status: Acute Assessment and Plan: Secondary to residual of COVID pneumonia and pulmonary emboli. Treat underlying condition with Lovenox and steroids. Patient and daughter have decided if need be, he wishes to be placed on vent. Poor prognosis discussed with patient's daughter 08/17 by other provider. She said she will follow her father's decision about whether or not to be intubated if needed. Condition worsening with increasing O2 requirement. He has finished his steroids today. ABG yesterday showing 7.47/41.82 and CXR had some signs of improvement. Appears to be worsening with flow rate and FiO2 requirements increasing. Repeat ABG 7.46//72 ABG. Discussed with dtr. Continue to monitor. (2) Pneumonia due to COVID-19 virus: Code(s): U07.1 - COVID-19; J12.82 - Pneumonia due to coronavirus disease 2019 Status: Acute Assessment and Plan: Does not appear to be a secondary bacterial infection. No longer a candidate for remdesivir. Decadron was started at 6 mg daily started on 08/13 and completed today. Repeat chest x-ray 08/21 still showing diffuse disease but appeared improved in some areas. Repeat inflammatory markers decreased yesterday. Continue MDI. (3) Pulmonary embolism: Qualifiers: Pulmonary embolism type: multiple subsegmental (without acute cor pulmonale) Qualified Code(s): I26.94 - Multiple subsegmental pulmonary emboli without acute cor pulmonale Code(s): I26.99 - Other pulmonary embolism without acute cor pulmonale Status: Acute Assessment and Plan: CTA Chest 08/13/20 showing acute pulmonary emboli in right middle lobe and right lower lobe. Venous Doppler negative. Started on full-dose Lovenox. Echo shows only mild pulmonary hypertension with normal ejection fraction suggesting low clot burden as seen on CT. Continue Lovenox. (4) Elevated troponin: Code(s): R77.8 - Other specified abnormalities of plasma proteins Status: Acute Assessment and Plan: Troponin elevated to 0.33 before trending down. Overall a flat response and no wall motion abnormality seen on echo. Could be secondary to pulmonary emboli and/or stress from hypoxia. Not felt to have had a true ischemic cardiac event. Continue beta-blas, statin and aspirin. Subjective Date/time seen: 08/22/20 13:06 Interval history: Date of visit 08/22 84-year-old male with HTN who tested positive for COVID on 07/31 having had symptoms since 07/25/20. Received Bamlanivimab as outpatient with some improvement but has increased shortness of breath 2-3 days prior to admission. Admitted 08/13 with respiratory failure for treatment of pulmonary emboli and COVID pneumonia. CTA revealed pulmonary emboli and infiltrates. Significantly, his was in ICU on vent with respiratory failure secondary to covid and 08/17/20. Patietn feels better and less SOB. No CP. Dry cough. Eating okay. Exam Narrative: Exam Narrative: AF 97.2 102/49 86 22 97% on HFNC on 60L/min on 90% FiO2 Gen - NARD but with mild conversational dyspnea Chest - bibasilar inspiratory crackles CV - RRR S1/S2; Tele showing PVCs Abd - Soft, NT/ND, Positive BS - Calle secured with yellow urine in the bag Ext - No pedal edema Psych - nml mood Skin - warm and dry Objective Data Vital Signs Vital Signs: Vital Signs - 24 hr 08/21/20 14:00 08/21/20 14:12 08/21/20 16:15 Temperature Pulse Rate 90 85 Respiratory Rate 24 H Blood Pressure Pulse Oximetry 95 98 08/21/20 16:52 08/21/20 18:00 08/21/20 19:20 Temperature 96.8 F L Pulse Rate 94 85 Respiratory Rate 22 H Blood Pressure 97/59 L Pulse Oximetry 95 100 08/21/20 19:50 08/21/20 20:00 08/21/20 21:27 Temperature 97.9 F Pulse Rate 83 83 Respiratory Rate 2
[2020-08-22 13:50] LABS: Alveolar/Arterial O2 Gradient 607.8 mmHg; Fractional Inspired Oxygen 100 %; HCO3 ABG 23.2 mEq/l (22.0-26.0); Oxygen Content ABG 14.3 %vol (16.0-22.0); Oxygen Saturation ABG 95.5 % (95.0-100.0); Oxyhemoglobin 93.9 % THb (90.0-100.0); PCO2 ABG 32.9 mmHg (35.0-45.0); PO2 ABG 72.3 mmHg (80.0-100.0); PO2 FiO2 Ratio Arterial Blood 0.72 %; Total Hemoglobin 10.8 g/dL (12.0-18.0); pH ABG 7.467 (7.350-7.450)
[2020-08-22 13:52] LABS: Device HIGH FLOW THERAPY; Modified Allen's Test Pass; Site Drawn RIGHT RADIAL
[2020-08-22] MEDS: SIMVASTATIN 20 MG TABLET PO (20:25)
[2020-08-23] VITALS (20 sets, daily range): BP systolic 93–102; BP diastolic 44–63; PULSE 58–111; RESP 18–26; TEMP 36.6–36.9; O2SAT 91–100
[2020-08-23 06:07] LABS: Hematocrit 30.4 % (42.0-52.0); Hemoglobin 9.6 g/dL (14.0-18.0); Mean Corpuscular HGB Conc 31.6 g/dl (32-36); Mean Corpuscular Hemoglobin 28.7 pg (26-34); Mean Corpuscular Volume 90.7 fl (80-100); Mean Platelet Volume 10.3 fl (7.4-10.4); Platelet Count Result 425 k/mm3 (150-375); Red Blood Count 3.35 M/mm3 (4.6-6.20); Red Cell Distribution Width 13.8 % (11.5-14.5); White Blood Count 6.7 K/mm3 (4.5-10.0)
[2020-08-23 06:10] LABS: Albumin Level 2.7 g/dL (3.5-5.1); Anion Gap 2 mmol/L (8-16); Blood Urea Nitrogen 28 mg/dL (9-20); Carbon Dioxide 32 mmol/L (22-30); Chloride 102 mmol/L (98-107); Estimated CRCL calculation 53 ml/min; Estimated Glomerular Filt Rate > 60; Glucose 110 mg/dL (75-110); Lactate Dehydrogenase 1061 U/L (313-618); Magnesium 2.1 mg/dL (1.6-2.3); Phosphorus 3.1 mg/dL (2.5-4.5); Potassium 4.1 mmol/L (3.4-5.0); Sodium 136 mmol/L (137-145)
[2020-08-23] MEDS: ENOXAPARIN 100 MG/ML SYRINGE 85 MG SUB-Q ×2 (09:17→20:09)
[2020-08-23] MEDS: MULTIVITAMINS /C LUTEIN (CENTRUM SILVER) TABLET *BKC 1 TAB PO (09:18)
[2020-08-23] MEDS: MAGNESIUM OXIDE 400 MG TABLET PO (09:18)
[2020-08-23] MEDS: FINASTERIDE 5 MG TABLET PO (09:18)
[2020-08-23] MEDS: METOPROLOL TARTRATE 12.5 MG TABLET PO (09:18)
[2020-08-23] MEDS: ASCORBIC ACID 500 MG TABLET PO (09:18)
[2020-08-23] MEDS: NIACIN SA 500 MG TABLET PO ×2 (09:18→16:24)
[2020-08-23] MEDS: PANTOPRAZOLE 40 MG TABLET PO (09:18)
[2020-08-23] MEDS: TAMSULOSIN HCL 0.4 MG CAPSULE PO (09:18)
[2020-08-23] MEDS: ASPIRIN 81 MG ENTERIC TABLET PO (09:19)
[2020-08-23] MEDS: OPTI-GEN TAB 1 TABLET PO ×2 (09:19→16:24)
[2020-08-23] MEDS: LEVALBUTEROL HFA (*SP) 15 GM INHALER 2 PUFF INHALATION ×3 (09:19→20:10)
--- NOTE | 2020-08-23 10:45 | PM.IMPN ---
Progress Note: A&P Assessment and Plan (1) Acute respiratory failure with hypoxia: Code(s): J96.01 - Acute respiratory failure with hypoxia Status: Acute Assessment and Plan: Secondary to residual of COVID pneumonia and pulmonary emboli. Treat underlying condition with Lovenox and steroids. Patient and daughter have decided if need be, he wishes to be placed on vent. Poor prognosis discussed with patient's daughter 08/17 by other provider. She said she will follow her father's decision about whether or not to be intubated if needed. Condition worsening with increasing O2 requirement. He has finished his steroids 08/22/20. ABG yesterday showing 7.46/33/72. Aa Gradient increasing. Stable today with flow rate and FiO2 requirements. (2) Pneumonia due to COVID-19 virus: Code(s): U07.1 - COVID-19; J12.82 - Pneumonia due to coronavirus disease 2019 Status: Acute Assessment and Plan: Does not appear to be a secondary bacterial infection. No longer a candidate for remdesivir. Decadron was started at 6 mg daily started on 08/13 and completed 08/22. Repeat chest x-ray 08/21 still showing diffuse disease but appeared improved in some areas. Repeat inflammatory markers higher today. Continue MDI. (3) Pulmonary embolism: Qualifiers: Pulmonary embolism type: multiple subsegmental (without acute cor pulmonale) Qualified Code(s): I26.94 - Multiple subsegmental pulmonary emboli without acute cor pulmonale Code(s): I26.99 - Other pulmonary embolism without acute cor pulmonale Status: Acute Assessment and Plan: CTA Chest 08/13/20 showing acute pulmonary emboli in right middle lobe and right lower lobe. Venous Doppler negative. Started on full-dose Lovenox. Echo shows only mild pulmonary hypertension with normal ejection fraction suggesting low clot burden as seen on CT. Continue Lovenox. (4) Elevated troponin: Code(s): R77.8 - Other specified abnormalities of plasma proteins Status: Acute Assessment and Plan: Troponin elevated to 0.33 before trending down. Overall a flat response and no wall motion abnormality seen on echo. Could be secondary to pulmonary emboli and/or stress from hypoxia. Not felt to have had a true ischemic cardiac event. Continue beta-blas, statin and aspirin. Subjective Date/time seen: 08/23/20 10:45 Interval history: Date of visit 08/23 84-year-old male with HTN who tested positive for COVID on 07/31 having had symptoms since 07/25/20. Received Bamlanivimab as outpatient with some improvement but has increased shortness of breath 2-3 days prior to admission. Admitted 08/13 with respiratory failure for treatment of pulmonary emboli and COVID pneumonia. CTA revealed pulmonary emboli and infiltrates. Significantly, his was in ICU on vent with respiratory failure secondary to covid and 08/17/20. Minimal cough. No CP. Slept well. Decreased appetite Exam Narrative: Exam Narrative: AF 97.9 102/55 88 22 95% on HFNC on 60L/min on 90% FiO2 Gen - NARD but with mild conversational dyspnea Chest - expiratory wheezes appreciated CV - RRR S1/S2; Tele showing PVCs Abd - Soft, NT/ND, Positive BS - Calle secured with yellow urine in the bag Ext - No pedal edema Psych - nml mood Skin - warm and dry Objective Data Vital Signs Vital Signs: Vital Signs - 24 hr 08/22/20 12:00 08/22/20 12:15 08/22/20 14:00 Temperature 97.2 F L Pulse Rate 79 86 85 Respiratory Rate 22 H Blood Pressure 102/49 L Pulse Oximetry 93 97 08/22/20 16:00 08/22/20 16:18 08/22/20 18:00 Temperature 96.9 F L Pulse Rate 93 92 82 Respiratory Rate 23 H Blood Pressure 108/60 Pulse Oximetry 96 97 08/22/20 20:00 08/22/20 20:24 08/22/20 21:30 Temperature 97.9 F Pulse Rate 81 81 Respiratory Rate 24 H Blood Pressure 108/66 Pulse Oximetry 100 98 08/22/20 22:00 08/22/20 23:05 08/22/20 23:46 Temper
[2020-08-23] MEDS: SIMVASTATIN 20 MG TABLET PO (20:09)
[2020-08-24] VITALS (25 sets, daily range): BP systolic 101–117; BP diastolic 45–59; PULSE 84–112; RESP 20–447; TEMP 35.7–36.8; O2SAT 80–98
[2020-08-24] MEDS: LEVALBUTEROL HFA (*SP) 15 GM INHALER 2 PUFF INHALATION ×3 (02:15→14:19)
[2020-08-24] MEDS: MAGNESIUM OXIDE 400 MG TABLET PO (08:29)
[2020-08-24] MEDS: ASCORBIC ACID 500 MG TABLET PO (08:29)
[2020-08-24] MEDS: METOPROLOL TARTRATE 12.5 MG TABLET PO ×2 (08:29→21:06)
[2020-08-24] MEDS: ENOXAPARIN 100 MG/ML SYRINGE 85 MG SUB-Q (08:30)
[2020-08-24] MEDS: NIACIN SA 500 MG TABLET PO ×2 (08:30→17:08)
[2020-08-24] MEDS: MULTIVITAMINS /C LUTEIN (CENTRUM SILVER) TABLET *BKC 1 TAB PO (08:30)
[2020-08-24] MEDS: TAMSULOSIN HCL 0.4 MG CAPSULE PO (08:30)
[2020-08-24] MEDS: PANTOPRAZOLE 40 MG TABLET PO (08:30)
[2020-08-24] MEDS: FINASTERIDE 5 MG TABLET PO (08:30)
[2020-08-24] MEDS: ASPIRIN 81 MG ENTERIC TABLET PO (08:30)
[2020-08-24] MEDS: OPTI-GEN TAB 1 TABLET PO ×2 (08:30→17:08)
--- NOTE | 2020-08-24 13:24 | PM.IMPN ---
Progress Note: A&P Assessment and Plan (1) Acute respiratory failure with hypoxia: Code(s): J96.01 - Acute respiratory failure with hypoxia Status: Acute Assessment and Plan: Secondary to residual of COVID pneumonia and pulmonary emboli. Treat underlying condition with Lovenox and steroids. Patient and daughter have decided if need be, he wishes to be placed on vent. Poor prognosis discussed with patient's daughter 08/17 by other provider. She said she will follow her father's decision about whether or not to be intubated if needed. Condition was worsening with increasing O2 requirement. He has finished his steroids 08/22/20. Serial ABGs showing increasing Aa Gradient but O2 requirement slightly better now. Turning the corner? Continue to wean o2 as toerlated. (2) Pneumonia due to COVID-19 virus: Code(s): U07.1 - COVID-19; J12.82 - Pneumonia due to coronavirus disease 2019 Status: Acute Assessment and Plan: Does not appear to be a secondary bacterial infection. No longer a candidate for remdesivir. Decadron was started at 6 mg daily started on 08/13 and completed 08/22. Repeat chest x-ray 08/21 still showing diffuse disease but appeared improved in some areas. Repeat inflammatory markers higher today. Continue MDI. (3) Pulmonary embolism: Qualifiers: Pulmonary embolism type: multiple subsegmental (without acute cor pulmonale) Qualified Code(s): I26.94 - Multiple subsegmental pulmonary emboli without acute cor pulmonale Code(s): I26.99 - Other pulmonary embolism without acute cor pulmonale Status: Acute Assessment and Plan: CTA Chest 08/13/20 showing acute pulmonary emboli in right middle lobe and right lower lobe. Venous Doppler negative. Started on full-dose Lovenox. Echo shows only mild pulmonary hypertension with normal ejection fraction suggesting low clot burden as seen on CT. Will change to Eliquis. (4) Elevated troponin: Code(s): R77.8 - Other specified abnormalities of plasma proteins Status: Acute Assessment and Plan: Troponin elevated to 0.33 before trending down. Overall a flat response and no wall motion abnormality seen on echo. Could be secondary to pulmonary emboli and/or stress from hypoxia. Not felt to have had a true ischemic cardiac event. Continue beta-blas, statin and aspirin. Subjective Date/time seen: 08/24/20 13:24 Interval history: Date of visit 08/24 84-year-old male with HTN who tested positive for COVID on 07/31 having had symptoms since 07/25/20. Received Bamlanivimab as outpatient with some improvement but has increased shortness of breath 2-3 days prior to admission. Admitted 08/13 with respiratory failure for treatment of pulmonary emboli and COVID pneumonia. CTA revealed pulmonary emboli and infiltrates. Significantly, his was in ICU on vent with respiratory failure secondary to covid and 08/17/20. Minimal cough. No CP or abd pain. SOB unchanged. Slept okay. RN states she weaned him to 50L/min at 70% Exam Narrative: Exam Narrative: AF 98.3 103/56 93 20 98% on HFNC on 50L/min on 70% FiO2 Gen - NARD lying semirecumbent in bed Chest - inspiratory carckles bibasilar, nml RR CV - RRR S1/S2; Tele showing PVCs Abd - Soft, NT/ND, Positive BS - Calle secured with yellow urine in the bag Ext - No pedal edema Psych - nml mood Skin - warm and dry Objective Data Vital Signs Vital Signs: Vital Signs - 24 hr 08/23/20 13:39 08/23/20 14:00 08/23/20 16:00 Temperature 98 F Pulse Rate 85 80 86 Respiratory Rate 26 H Blood Pressure 99/63 L Pulse Oximetry 94 97 08/23/20 18:00 08/23/20 20:00 08/23/20 20:57 Temperature 98.4 F Pulse Rate 97 102 H 88 Respiratory Rate 24 H 24 H Blood Pressure 98/50 L Pulse Oximetry 98 96 08/23/20 22:00 08/24/20 00:00 08/24/20 02:00 Temperature 97.3 F L Pulse Rate 107 H 104 H 100 Respiratory Rate 24 H Blood Pre
[2020-08-24] MEDS: APIXABAN 5 MG TABLET 10 MG PO (21:05)
[2020-08-24] MEDS: SIMVASTATIN 20 MG TABLET PO (21:06)
[2020-08-25] VITALS (22 sets, daily range): BP systolic 93–118; BP diastolic 46–61; PULSE 87–122; RESP 12–32; TEMP 36.2–37.1; O2SAT 89–97
[2020-08-25] MEDS: LEVALBUTEROL HFA (*SP) 15 GM INHALER 2 PUFF INHALATION ×4 (00:14→20:09)
[2020-08-25 05:00] LABS: Basophils Percent Auto 0.2 % (0.2-1.2); Eosinophils Absolute Auto 0.1 K/mm3 (0-0.3); Eosinophils Percent Auto 1.2 % (0-4.4); Hematocrit 30.6 % (42.0-52.0); Hemoglobin 9.8 g/dL (14.0-18.0); Immature Granulocyte Absolute 0.12 K/mm3 (0.00-0.031); Immature Granulocyte Percent A 1.1 % (0-0.5); Lymphocytes Absolute Auto 0.75 K/mm3 (0.9-3.2); Lymphocytes Percent Auto 6.7 % (18.3-44.2); Mean Corpuscular Hemoglobin 28.7 pg (26-34); Mean Corpuscular Volume 89.7 fl (80-100); Mean Platelet Volume 9.5 fl (7.4-10.4); Monocytes Absolute Auto 0.4 K/mm3 (0.1-0.6); Monocytes Percent Auto 3.8 % (2.6-8.5); Neutrophils Absolute Auto 9.8 K/mm3 (1.3-6.7); Platelet Count Result 432 k/mm3 (150-375); Red Blood Count 3.41 M/mm3 (4.6-6.20); Red Cell Distribution Width 14.1 % (11.5-14.5); White Blood Count 11.2 K/mm3 (4.5-10.0)
[2020-08-25 05:37] LABS: Alanine Aminotransferase 99 U/L (4-50); Albumin Level 2.8 g/dL (3.5-5.1); Alkaline Phosphatase 90 U/L (38-126); Anion Gap 2 mmol/L (8-16); Aspartate Amino Transferase 58 U/L (17-59); Bilirubin,Total 0.6 mg/dL (0.2-1.3); Blood Urea Nitrogen 23 mg/dL (9-20); CRP 22.4 mg/dL (<1.0); Carbon Dioxide 32 mmol/L (22-30); Chloride 103 mmol/L (98-107); Estimated CRCL calculation 44 ml/min; Estimated Glomerular Filt Rate > 60; Glucose 119 mg/dL (75-110); Lactate Dehydrogenase 664 U/L (313-618); Phosphorus 3.1 mg/dL (2.5-4.5); Sodium 137 mmol/L (137-145)
[2020-08-25] MEDS: PANTOPRAZOLE 40 MG TABLET PO (08:39)
[2020-08-25] MEDS: APIXABAN 5 MG TABLET 10 MG PO (08:40)
[2020-08-25] MEDS: ASPIRIN 81 MG ENTERIC TABLET PO (08:40)
[2020-08-25] MEDS: OPTI-GEN TAB 1 TABLET PO ×2 (08:40→16:03)
[2020-08-25] MEDS: METOPROLOL TARTRATE 12.5 MG TABLET PO ×2 (08:40→20:08)
[2020-08-25] MEDS: MULTIVITAMINS /C LUTEIN (CENTRUM SILVER) TABLET *BKC 1 TAB PO (08:43)
[2020-08-25] MEDS: NIACIN SA 500 MG TABLET PO ×2 (08:43→16:03)
[2020-08-25] MEDS: FINASTERIDE 5 MG TABLET PO (08:43)
[2020-08-25] MEDS: MAGNESIUM OXIDE 400 MG TABLET PO (08:43)
[2020-08-25] MEDS: ASCORBIC ACID 500 MG TABLET PO (08:43)
[2020-08-25] MEDS: TAMSULOSIN HCL 0.4 MG CAPSULE PO (08:43)
[2020-08-25 09:00] LABS: Alveolar/Arterial O2 Gradient 420.6 mmHg; Base Excess ABG 3.5 mEq/l (+/-2.0); Fractional Inspired Oxygen 70 %; HCO3 ABG 25.8 mEq/l (22.0-26.0); Oxygen Content ABG 13.6 %vol (16.0-22.0); Oxyhemoglobin 84.1 % THb (90.0-100.0); PCO2 ABG 31.7 mmHg (35.0-45.0); PO2 FiO2 Ratio Arterial Blood 0.63 %; Total Hemoglobin 11.5 g/dL (12.0-18.0)
[2020-08-25 09:01] LABS: pH ABG 7.529 (7.350-7.450)
[2020-08-25 09:02] LABS: Device HIGH FLOW THERAPY; Modified Allen's Test Pass; Oxygen Saturation ABG 85.9 % (95.0-100.0); PO2 ABG 44.4 mmHg (80.0-100.0); Site Drawn LEFT RADIAL
--- NOTE | 2020-08-25 15:37 | PM.IMPN ---
Progress Note: A&P Assessment and Plan (1) Acute respiratory failure with hypoxia: Code(s): J96.01 - Acute respiratory failure with hypoxia Status: Acute Assessment and Plan: Secondary to residual of COVID pneumonia and pulmonary emboli. Poor prognosis and patient and daughter aware. Plan for intubation if his condition worsens. He has finished his steroids 08/22/20. Continue to wean o2 as tolerated. (2) Pneumonia due to COVID-19 virus: Code(s): U07.1 - COVID-19; J12.82 - Pneumonia due to coronavirus disease 2019 Status: Acute Assessment and Plan: Does not appear to be a secondary bacterial infection. No longer a candidate for remdesivir. Decadron was started at 6 mg daily started on 08/13 and completed 08/22. Repeat chest x-ray 08/21 still showing diffuse disease but appeared improved in some areas. Repeat inflammatory markers showing LDH better but CRP higher. Follow. (3) Pulmonary embolism: Qualifiers: Pulmonary embolism type: multiple subsegmental (without acute cor pulmonale) Qualified Code(s): I26.94 - Multiple subsegmental pulmonary emboli without acute cor pulmonale Code(s): I26.99 - Other pulmonary embolism without acute cor pulmonale Status: Acute Assessment and Plan: CTA Chest 08/13/20 showing acute pulmonary emboli in right middle lobe and right lower lobe. Venous Doppler negative. Started on full-dose Lovenox. Echo shows only mild pulmonary hypertension with normal ejection fraction suggesting low clot burden as seen on CT. He has been on Lovenox full dose for >7 days so will just start with Eliquis 5mg Q12h. (4) Elevated troponin: Code(s): R77.8 - Other specified abnormalities of plasma proteins Status: Acute Assessment and Plan: Troponin elevated to 0.33 before trending down. Overall a flat response and no wall motion abnormality seen on echo. Could be secondary to pulmonary emboli and/or stress from hypoxia. Not felt to have had a true ischemic cardiac event. Continue beta-blas, statin and aspirin. Subjective Date/time seen: 08/25/20 15:37 Interval history: Date of visit 08/25 84-year-old male with HTN who tested positive for COVID on 07/31 having had symptoms since 07/25/20. Received Bamlanivimab as outpatient with some improvement but has increased shortness of breath 2-3 days prior to admission. Admitted 08/13 with respiratory failure for treatment of pulmonary emboli and COVID pneumonia. CTA revealed pulmonary emboli and infiltrates. Significantly, his was in ICU on vent with respiratory failure secondary to COVID and 08/17/20. Minimal cough now. No CP or abd pain. SOB unchanged. Exam Narrative: Exam Narrative: AF 98.7 93/48 104 12 93% on HFNC on 50L/min on 70% FiO2 Gen - NARD lying semirecumbent in bed Chest - inspiratory crackles in the flanks, nml RR CV - RRR S1/S2; Tele showing PVCs Abd - Soft, NT/ND, Positive BS - Calle secured with yellow urine in the bag Ext - No pedal edema Psych - oriented but not as alert Skin - warm and dry Objective Data Vital Signs Vital Signs: Vital Signs - 24 hr 08/24/20 15:45 08/24/20 16:00 08/24/20 17:43 Temperature 98 F Pulse Rate 94 94 Respiratory Rate 20 24 H Blood Pressure 104/55 L Pulse Oximetry 93 91 93 08/24/20 18:00 08/24/20 20:00 08/24/20 20:52 Temperature 97.9 F Pulse Rate 103 H 112 H 109 H Respiratory Rate 20 Blood Pressure 109/59 L Pulse Oximetry 97 97 08/24/20 21:06 08/24/20 22:00 08/24/20 22:14 Temperature Pulse Rate 105 H 98 109 H Respiratory Rate 447 H Blood Pressure Pulse Oximetry 91 08/25/20 00:00 08/25/20 02:00 08/25/20 02:35 Temperature 97.9 F Pulse Rate 89 92 Respiratory Rate 32 H Blood Pressure 101/53 L Pulse Oximetry 94 94 08/25/20 03:46 08/25/20 04:00 08/25/20 06:00 Temperature 97.2 F L Pulse Rate 101 H 107 H Respiratory Rate 20 Blood Pr
[2020-08-25] MEDS: APIXABAN 5 MG TABLET PO (20:09)
[2020-08-25] MEDS: SIMVASTATIN 20 MG TABLET PO (20:09)
[2020-08-26] VITALS (23 sets, daily range): BP systolic 95–114; BP diastolic 47–53; PULSE 85–119; RESP 22–24; TEMP 36.6–38; O2SAT 90–97
[2020-08-26] MEDS: LEVALBUTEROL HFA (*SP) 15 GM INHALER 2 PUFF INHALATION ×4 (02:08→22:13)
[2020-08-26] MEDS: APIXABAN 5 MG TABLET PO ×2 (10:10→22:12)
[2020-08-26] MEDS: ACETAMINOPHEN 325 MG TABLET 650 MG PO (10:10)
[2020-08-26] MEDS: TAMSULOSIN HCL 0.4 MG CAPSULE PO (10:10)
[2020-08-26] MEDS: ASPIRIN 81 MG ENTERIC TABLET PO (10:11)
[2020-08-26] MEDS: PANTOPRAZOLE 40 MG TABLET PO (10:11)
[2020-08-26] MEDS: FINASTERIDE 5 MG TABLET PO (10:11)
[2020-08-26] MEDS: METOPROLOL TARTRATE 12.5 MG TABLET PO ×2 (10:49→22:12)
[2020-08-26] MEDS: OPTI-GEN TAB 1 TABLET PO ×2 (10:50→16:30)
[2020-08-26] MEDS: MULTIVITAMINS /C LUTEIN (CENTRUM SILVER) TABLET *BKC 1 TAB PO (10:50)
[2020-08-26] MEDS: ASCORBIC ACID 500 MG TABLET PO (10:50)
[2020-08-26] MEDS: MAGNESIUM OXIDE 400 MG TABLET PO (10:50)
[2020-08-26] MEDS: NIACIN SA 500 MG TABLET PO ×2 (10:50→16:30)
--- NOTE | 2020-08-26 15:24 | PM.IMPN ---
Progress Note: A&P Assessment and Plan (1) Acute respiratory failure with hypoxia: Code(s): J96.01 - Acute respiratory failure with hypoxia Status: Acute Assessment and Plan: Secondary to residual of COVID pneumonia and pulmonary emboli. Poor prognosis and patient and daughter aware. Plan for intubation if his condition worsens. He has finished his steroids 08/22/20. Continue to wean o2 as tolerated. (2) Pneumonia due to COVID-19 virus: Code(s): U07.1 - COVID-19; J12.82 - Pneumonia due to coronavirus disease 2019 Status: Acute Assessment and Plan: Does not appear to be a secondary bacterial infection. No longer a candidate for remdesivir. Decadron was started at 6 mg daily started on 08/13 and completed 08/22. Repeat chest x-ray 08/21 still showing diffuse disease but appeared improved in some areas. Repeat inflammatory markers showing LDH better but CRP higher. Follow. (3) Pulmonary embolism: Qualifiers: Pulmonary embolism type: multiple subsegmental (without acute cor pulmonale) Qualified Code(s): I26.94 - Multiple subsegmental pulmonary emboli without acute cor pulmonale Code(s): I26.99 - Other pulmonary embolism without acute cor pulmonale Status: Acute Assessment and Plan: CTA Chest 08/13/20 showing acute pulmonary emboli in right middle lobe and right lower lobe. Venous Doppler negative. Started on full-dose Lovenox. Echo shows only mild pulmonary hypertension with normal ejection fraction suggesting low clot burden as seen on CT. Continue Eliquis 5mg Q12h. (4) Elevated troponin: Code(s): R77.8 - Other specified abnormalities of plasma proteins Status: Acute Assessment and Plan: Troponin elevated to 0.33 before trending down. Overall a flat response and no wall motion abnormality seen on echo. Could be secondary to pulmonary emboli and/or stress from hypoxia. Not felt to have had a true ischemic cardiac event. Continue beta-blas, statin and aspirin. Subjective Date/time seen: 08/26/20 15:24 Interval history: Date of visit 08/26 84-year-old male with HTN who tested positive for COVID on 07/31 having had symptoms since 07/25/20. Received Bamlanivimab as outpatient with some improvement but has increased shortness of breath 2-3 days prior to admission. Admitted 08/13 with respiratory failure for treatment of pulmonary emboli and COVID pneumonia. CTA revealed pulmonary emboli and infiltrates. Significantly, his was in ICU on vent with respiratory failure secondary to COVID and 08/17/20. Still on same o2 settings. No issues overnight. no CP. Up to the chair. Exam Narrative: Exam Narrative: AF 98.4 95/47 91 24 95% on HFNC on 50L/min on 70% FiO2 Gen - NARD sitting at the side of the bed Chest - dry inspiratory crackles posteriorly, nml RR CV - RRR S1/S2; Tele showing PVCs Abd - Soft, NT/ND, Positive BS - Calle secured with yellow urine in the bag Ext - No pedal edema Neuro - with help, he was able to stand and pivot to the chair Skin - warm and dry Objective Data Vital Signs Vital Signs: Vital Signs - 24 hr 08/25/20 16:00 08/25/20 17:53 08/25/20 20:00 Temperature 98.7 F 97.8 F Pulse Rate 108 H 101 H 107 H Respiratory Rate 24 H 20 Blood Pressure 105/49 L 118/46 L Pulse Oximetry 94 94 08/25/20 20:08 08/25/20 22:00 08/25/20 22:27 Temperature Pulse Rate 106 H 96 87 Respiratory Rate 22 H Blood Pressure Pulse Oximetry 95 08/25/20 23:44 08/26/20 00:00 08/26/20 02:00 Temperature 97.9 F Pulse Rate 92 88 85 Respiratory Rate 22 H Blood Pressure 108/57 L Pulse Oximetry 93 93 08/26/20 04:00 08/26/20 06:00 08/26/20 08:00 Temperature 98.3 F 100.4 F H Pulse Rate 90 94 101 H Respiratory Rate 22 H 22 H Blood Pressure 114/52 L 102/47 L Pulse Oximetry 92 95 08/26/20 08:14 08/26/20 10:00 08/26/20 10:10 Temperature 100.4 F H Pulse Rate 107 H R
[2020-08-26] MEDS: SIMVASTATIN 20 MG TABLET PO (22:12)
[2020-08-26] MEDS: SODIUM CHLORIDE NASAL GEL 14.1 GM 1 APPLIC NASAL (22:12)
--- NOTE | 2020-08-26 23:49 | PC.NURSE ---
PATIENT KEPT REMOVING ALL OF HIS O2. HE STATED THAT HIS NOSE WAS SO VERY TENDER AND THAT IT WAS HURTING TO HAVE THE CANULA IN HIS NOSTRIL. CALLED DR SCHULTZ AND WAS GIVEN AN ORDER FOR A SALINE GEL TO PLACE IN PATIENTS NOSE FOR COMFORT.
[2020-08-27] VITALS (12 sets, daily range): BP systolic 94–111; BP diastolic 52–56; PULSE 76–118; RESP 20–28; TEMP 36.2–36.7; O2SAT 91–99
--- NOTE | 2020-08-27 01:29 | PC.NURSE ---
PATIENT KEEPS REMOVING HIS OXYGEN AND IS STARTING TO REFUSE TO WEAR IT. HE IS STATING THAT HE IS GETTING READY TO LEAVE, BUT WON'T SAY WHERE.
[2020-08-27 05:46] LABS: Basophils Percent Auto 0.1 % (0.2-1.2); Eosinophils Absolute Auto 0.3 K/mm3 (0-0.3); Eosinophils Percent Auto 2.8 % (0-4.4); Hematocrit 30.4 % (42.0-52.0); Hemoglobin 9.7 g/dL (14.0-18.0); Immature Granulocyte Absolute 0.14 K/mm3 (0.00-0.031); Immature Granulocyte Percent A 1.3 % (0-0.5); Lymphocytes Absolute Auto 0.85 K/mm3 (0.9-3.2); Lymphocytes Percent Auto 8.2 % (18.3-44.2); Mean Corpuscular HGB Conc 31.9 g/dl (32-36); Mean Corpuscular Hemoglobin 28.6 pg (26-34); Mean Corpuscular Volume 89.7 fl (80-100); Mean Platelet Volume 9.3 fl (7.4-10.4); Monocytes Absolute Auto 0.5 K/mm3 (0.1-0.6); Monocytes Percent Auto 4.4 % (2.6-8.5); Neutrophils Absolute Auto 8.6 K/mm3 (1.3-6.7); Neutrophils Percent Auto 83.2 % (45.5-73.1); Platelet Count Result 397 k/mm3 (150-375); Red Blood Count 3.39 M/mm3 (4.6-6.20); Red Cell Distribution Width 14.2 % (11.5-14.5); White Blood Count 10.4 K/mm3 (4.5-10.0)
[2020-08-27 05:59] LABS: Lactate Dehydrogenase 718 U/L (313-618)
[2020-08-27 06:28] LABS: Alanine Aminotransferase 182 U/L (4-50); Albumin Level 2.7 g/dL (3.5-5.1); Alkaline Phosphatase 102 U/L (38-126); Anion Gap 2 mmol/L (8-16); Aspartate Amino Transferase 121 U/L (17-59); Bilirubin,Total 0.5 mg/dL (0.2-1.3); Blood Urea Nitrogen 27 mg/dL (9-20); Calcium 7.7 mg/dL (8.4-10.2); Carbon Dioxide 34 mmol/L (22-30); Chloride 103 mmol/L (98-107); Estimated CRCL calculation 44 ml/min; Estimated Glomerular Filt Rate > 60; Glucose 121 mg/dL (75-110); Magnesium 2.2 mg/dL (1.6-2.3); Potassium 4.4 mmol/L (3.4-5.0); Sodium 139 mmol/L (137-145)
--- NOTE | 2020-08-27 06:44 | PC.NURSE ---
PATIENT IS REMOVING O2 AND REFUSING TO LET US PUT O2 BACK ON. HE WILL HOLD THE CANULA AND NON-REBREATHER SQUEEZED IN HIS HAND AND SCREAM AT US TO GO PUMP UP AIR ON SOMEONE ELSE. I TOLD HIM THAT I WAS GOING TO CALL HIS DAUGHTER AND THAT THEY NEED TO HAVE A TALK ABOUT WHAT HE WANT DONE FOR CODE STATUS IF HE IS GOING TO REFUSE TO WEAR THE O2 AND HE YELLED AT ME NOT TO SCARE HIM. I WAS ABLE TO CONVINCE HIM TO WEAR THE AIRVO, BUT NOT THE NON-REBREATHER. I PLACED A CALL TO DAUGHTER TO CALL ME BACK. AND I PLACED A CALL TO DR SCHULTZ FOR UPDATE.
[2020-08-27 06:55] LABS: CRP 22.6 mg/dL (<1.0)
[2020-08-27 07:09] LABS: Phosphorus 3.2 mg/dL (2.5-4.5)
[2020-08-27] MEDS: ASCORBIC ACID 500 MG TABLET PO (09:57)
[2020-08-27] MEDS: PANTOPRAZOLE 40 MG TABLET PO (09:57)
[2020-08-27] MEDS: NIACIN SA 500 MG TABLET PO (09:57)
[2020-08-27] MEDS: OPTI-GEN TAB 1 TABLET PO (09:57)
[2020-08-27] MEDS: MULTIVITAMINS /C LUTEIN (CENTRUM SILVER) TABLET *BKC 1 TAB PO (09:57)
[2020-08-27] MEDS: TAMSULOSIN HCL 0.4 MG CAPSULE PO (09:57)
[2020-08-27] MEDS: FINASTERIDE 5 MG TABLET PO (09:58)
[2020-08-27] MEDS: MAGNESIUM OXIDE 400 MG TABLET PO (09:58)
[2020-08-27] MEDS: ASPIRIN 81 MG ENTERIC TABLET PO (09:58)
[2020-08-27] MEDS: METOPROLOL TARTRATE 12.5 MG TABLET PO (09:58)
[2020-08-27] MEDS: APIXABAN 5 MG TABLET PO (09:58)
[2020-08-27] MEDS: SODIUM CHLORIDE NASAL GEL 14.1 GM 1 APPLIC NASAL (10:00)
[2020-08-27] MEDS: LEVALBUTEROL HFA (*SP) 15 GM INHALER 2 PUFF INHALATION (11:07)
--- NOTE | 2020-08-27 13:12 | PCDIET ---
Nutrition Follow-Up Complete: Nutrition Diagnosis: Involuntary weight loss related to decreased appetite as evidenced by patient statements, documented 9.9% weight loss x 8 months. Nutrition Goal: Patient to consume 75% of meals or greater. Goal not met. Intakes fluctuate with average intake of 40% of meals since 08/23/20 on heart healthy diet. 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 If aggressive nutritional therapy is desired, would consider supplemental nutrition support. Last recorded weight is 77.4 kg which is decreased from last review. Bowel Motility: Last documented BM on 08/23/20. Labs Reviewed: Hgb (9.7), Hct (30.4), Glu (121), Alb (2.7), Terrance Ca (8.74) Meds Noted: Vitamin C, Oscal 500 + D, Xopenex, Mag-Ox, Lopressor, Centrum, Ocuvite, Protonix, Miralax, Zocor Additional Notes: No documented skin breakdown. Will continue to monitor with same goal. Nutrition Monitoring and Evaluation: Follow up every 3 days.
--- NOTE | 2020-08-27 14:56 | PM.IMPN ---
Progress Note: A&P Assessment and Plan (1) Acute respiratory failure with hypoxia: Code(s): J96.01 - Acute respiratory failure with hypoxia Status: Acute Assessment and Plan: Secondary to residual of COVID pneumonia and pulmonary emboli. Poor prognosis and patient and daughter have been kept informed that the patient's condition has not changed dramatically. He has finished his steroids 08/22/20. Continue to wean o2 as tolerated. Spoke with daughter and son about the patient's wishes. Explained that he is mildly confused and would have to have his wishes verified by other family members. Explained that there has been no significant change in the patient's condition and that he may be developing pulmonary fibrosis. They wish to speak to the DERRELL lezama before making a decision. (2) Pneumonia due to COVID-19 virus: Code(s): U07.1 - COVID-19; J12.82 - Pneumonia due to coronavirus disease 2019 Status: Acute Assessment and Plan: Does not appear to be a secondary bacterial infection. No longer a candidate for remdesivir. Decadron was started at 6 mg daily started on 08/13 and completed 08/22. Repeat chest x-ray today still showing diffuse disease that appear worsen. Repeat inflammatory markers showing LDH higher. (3) Pulmonary embolism: Qualifiers: Pulmonary embolism type: multiple subsegmental (without acute cor pulmonale) Qualified Code(s): I26.94 - Multiple subsegmental pulmonary emboli without acute cor pulmonale Code(s): I26.99 - Other pulmonary embolism without acute cor pulmonale Status: Acute Assessment and Plan: CTA Chest 08/13/20 showing acute pulmonary emboli in right middle lobe and right lower lobe. Venous Doppler negative. Started on full-dose Lovenox. Echo shows only mild pulmonary hypertension with normal ejection fraction suggesting low clot burden as seen on CT. Continue Eliquis 5mg Q12h. (4) Elevated troponin: Code(s): R77.8 - Other specified abnormalities of plasma proteins Status: Acute Assessment and Plan: Troponin elevated to 0.33 before trending down. Overall a flat response and no wall motion abnormality seen on echo. Could be secondary to pulmonary emboli and/or stress from hypoxia. Not felt to have had a true ischemic cardiac event. Continue beta-blas, statin and aspirin. Subjective Date/time seen: 08/27/20 14:56 Interval history: Date of visit 08/27 84-year-old male with HTN who tested positive for COVID on 07/31 having had symptoms since 07/25/20. Received Bamlanivimab as outpatient with some improvement but has increased shortness of breath 2-3 days prior to admission. Admitted 08/13 with respiratory failure for treatment of pulmonary emboli and COVID pneumonia. CTA revealed pulmonary emboli and infiltrates. Significantly, his was in ICU on vent with respiratory failure secondary to COVID and 08/17/20. Patient is awake. He is mildly somnolent and mildly confused. He told the nurse earlier today when he was more awake and alert that he did not want to continue treatment and wanted to proceed with hospice care. He reiterates his desire to stop care proceed with comfort measures. Exam Narrative: Exam Narrative: AF 97.5 94/52 86 24 98% on HFNC on 50L/min on 90% FiO2 Gen - NARD but appears tired Chest -mildly coarse breath sounds anteriorly in the flanks. CV - RRR S1/S2 Abd - Soft, NT/ND, Positive BS - Calle secured with yellow urine in the bag Ext - No pedal edema Neuro -patient is awake but mildly somnolent and confused. He knows the year and location but perseverates on the month by reciting the year again. Skin - warm and dry Objective Data Vital Signs Vital Signs: Vital Signs - 24 hr 08/26/20 15:07 08/26/20 15:53 08/26/20 16:00 Temperature 97.9 F Pulse Rate 100 104 H Respiratory Rate 22 H Blood Pressure 103/48 L Pulse Oximetry 90 93 08/26/20 17:23 02
[2020-08-27] MEDS: MORPHINE SULFATE (*CRX) 2 MG/ML INJ IV PUSH ×3 (17:37→19:35)
[2020-08-27] MEDS: MORPHINE SULFATE INJ (*CRX) 50 MG in SODIUM CHLORIDE 0.9% IV 95 ML IV CONT (17:37)
[2020-08-27] MEDS: LORazepam INJ (*CRX) 2 MG/ML VIAL 1 MG IV PUSH ×2 (17:38→19:35)
--- NOTE | 2020-08-27 20:11 | PC.NURSE ---
PATIENT WAS PLACED ON COMFORT MEASURES. PATIENT AT 194. HUANG RN, ALEJANDRO RN AND DAUGHTER AT BEDSIDE. CHARGE NURSE, KENNEL KEEPER AND DR BARAHONA ARE AWARE OF PATIENTS PASSING. ARRANGEMENT ARE TO BE MADE AND BELONGINGS INCLUDING PATIENTS [place] RING WILL GO WITH DAUGHTER.
--- NOTE | 2020-08-27 20:54 | PC.NURSE ---
PATIENT'S BODY TAKEN DOWN TO [facility] [place].
--- NOTE | 2020-08-27 21:03 | PM.DDS ---
Discharge Sum: Prov Provider Primary care physician: Lee German MD Admitting provider: Eboni Yeh MD Consults: 08/27/20 16:45 Consult to Spiritual Care Services Routine Comment: Pronouncing clinician: Korey Herrera Discharge Sum: Diag PCOD Acute respiratory failure from COVID pneumonia Contributing Factors (1) Acute respiratory failure with hypoxia: (2) Pneumonia due to COVID-19 virus: (3) Pulmonary embolism: (4) Elevated troponin: Discharge Sum: Summary Date and Time Date of admission: 08/13/20 14:23 Date of : 08/27/20 Time of : 19:48 Summary Details: Patient developed acute respiratory failure secondary to COVID pneumonia and pulmonary emboli. Poor prognosis and patient and daughter have been kept informed that the patient's condition has not changed dramatically during his hospital course. He completed steroid course. CTA Chest 08/13/20 showing acute pulmonary emboli in right middle lobe and right lower lobe. Venous Doppler negative. Treated with Lovenox. Patient continued to require high amount of O2 via AirVo. Patient stated that he did not want to continue with treatment. Spoke with daughter and son about the patient's wishes. Explained that there has been no significant change in the patient's condition and that he may be developing pulmonary fibrosis. The family came in and visited with patient. The family agreed with the patient's wishes and we proceed with comfort measures with Morphine and Ativan. he on 08/27/20. Additional Data Family: at bedside Attending physician: Cole Herrera MD Was code activated?: No Hospice patient?: No
== END 2020-08-27 19:48 | disposition expired | DRG 177 ==
LOC: ANHED 14:20 → ANHIMU 08-14 02:25
PROVIDERS: Internal Medicine; Admitting Provider Internal Medicine; Emergency Provider Emergency Medicine; PCP Family Medicine; Visit Provider Internal Medicine
DX: U07.1 COVID-19 (principal); J96.01 Acute respiratory failure with hypoxia; J12.82 Pneumonia due to coronavirus disease 2019; I26.94 Multiple subsegmental thrombotic pulmonary emboli without acute cor pulmonale; C85.90 Non-Hodgkin lymphoma, unspecified, unspecified site; R77.8 Other specified abnormalities of plasma proteins; I25.10 Atherosclerotic heart disease of native coronary artery without angina pectoris; I10 Essential (primary) hypertension; N40.0 Benign prostatic hyperplasia without lower urinary tract symptoms; D50.9 Iron deficiency anemia, unspecified; K21.9 Gastro-esophageal reflux disease without esophagitis; H40.9 Unspecified glaucoma; E78.00 Pure hypercholesterolemia, unspecified; E73.9 Lactose intolerance, unspecified; I25.2 Old myocardial infarction; Z79.82 Long term (current) use of aspirin; Z79.899 Other long term (current) drug therapy; Z87.891 Personal history of nicotine dependence; Z98.42 Cataract extraction status, left eye; Z98.41 Cataract extraction status, right eye
CPT/HCPCS: 36415; 36600; 71045; 71275; 80048; 80053; 80069; 80076; 82375; 82728; 82805; 83050; 83605; 83615; 83735; 83880; 84100; 84484; 85025; 85027; 85380; 85610; 85730; 86140; 87040; 93005; 93306; 94002; 94003; 94640; 96372; 99291; A9270; G0378; J1100; J1650; J2060; J2270; Q9967